=== PATIENT | male | born 1935 | race Caucasian/White ===

== ENCOUNTER 2018-04-23 17:01 | Emergency (ER) | payer OTHER, SELFPAY ==
[2018-04-23] VITALS (7 sets, daily range): BP systolic 102–119; BP diastolic 46–63; PULSE 67–75; RESP 14–20; TEMP 36.6; O2SAT 89–100
--- NOTE | 2018-04-23 17:55 | ED_ITS ---
HPI - SOB/Dyspnea <Farzana Alavrez PA-C - Last Filed: 04/23/18 23:03> General Chief Complaint: Shortness of Breath/Dyspnea Stated Complaint: SHARP PAIN RT SIDE Time Seen by Provider: 04/23/18 17:53 Source: patient and family Mode of arrival: ambulatory Limitations: no limitations History of Present Illness This 83-year-old gentleman with an extensive medical history presents with 2 day history of pain in his right side. He points to the 12 lateral rib as source of pain. He states that it is difficult to take a deep breath and he is breathing more shallow least secondary to the pain, however he does not feel acutely short of breath or notice wheezing. He states he does not feel pain up in his chest. He states that he may have had some nausea when this started last night, but none now. He denies any vomiting. He denies any fever or recent upper respiratory symptoms. He denies any urinary symptoms or bowel habit changes. He states that the pain is better at rest, increase with movement or deep breath. His notes that a week ago, he had an episode of nausea, vomiting, and bloating, but this seemed to resolve in a couple of days. notes that he did get a dose of morphine for this last night to help him rest. He has a history of nocturnal angina and uses oxygen at HS, at 2.5 L. His notes that his O2 sats were less than 90 at home and typically right around 94%. Patient denies any new pain or swelling in the extremities, feeling faint or dizzy or other complaints on systems review Related Data Home Medications Medication Instructions Recorded Confirmed aspirin 81 mg PO QDAY #0 10/08/12 04/23/18 famotidine 20 mg PO QPM #0 01/05/17 04/23/18 citalopram 20 mg PO QDAY #0 12/25/17 04/23/18 amlodipine 5 mg PO QPM 04/23/18 04/23/18 isosorbide mononitrate 30 mg PO DAILY 04/23/18 04/23/18 morphine concentrate 0.25 ml PO Q1H PRN 04/23/18 04/23/18 ranolazine [Ranexa] 500 mg PO BID 04/23/18 04/23/18 Previous Rx's Medication Instructions Recorded nitroglycerin [Nitrostat] 0.4 mg SUBLINGUAL PRN PRN #4 bot 10/28/17 isosorbide mononitrate ER 60 mg 60 mg PO QAM #90 tab 03/20/18 tablet,extended release 24 hr Allergies Allergy/AdvReac Type Severity Reaction Status Date / Time No Known Drug Allergies Allergy Unknown Unverified 02/28/18 12:54 [NO KNOWN DRUG ALLERGIES] abalone Allergy Mild pt reports Uncoded 02/28/18 12:54 vomiting/GI distress Review of Systems <Farzana Alvarez PA-C - Last Filed: 04/23/18 23:03> Review of Systems All systems reviewed & are unremarkable except as noted in HPI and below Exam <Farzana Alvarez PA-C - Last Filed: 04/23/18 23:03> Narrative Exam Narrative: GENERAL APPEARANCE: Patient sitting comfortably, in no distress. Appears frail HEENT: PERRL, EOMI, no scleral icterus NECK: Supple LUNGS: Clear to auscultation bilaterally. HEART: Rate and rhythm regular, IV/ low-pitched holosystolic murmur, normal S1 and S2, no S3 or S4. CHEST: exquisitely tender over the R. 12th rib most from the midclavicular to lateral clavicular line ABDOMEN: Soft, moderate right upper quadrant tenderness without guarding or rebound, , increased tenderness with approaching the costal margin, nondistended , bowel sounds present x 4 quadrants, no masses palpable, no hepatosplenomegaly. No CVAT EXTREMITIES: No edema, no cyanosis DERMATOLOGIC: No jaundice or exanthem NEUROLOGIC: Alert with normal speech and coordination Initial Vital Signs Initial Vital Signs: Vital Signs Temperature 97.8 F 04/23/18 17:14 Pulse Rate 71 04/23/18 17:14 Respiratory Rate 14 04/23/18 17:14 Blood Pressure 108/55 L 04/23/18 17:14 Pulse Oximetry 89 L 04/23/18 17:14 <Peter Esqueda DO - Last Filed: 04/24/18 02:16> Initial Vital Signs Initial Vital Signs: Vital Signs Temperature 97.8 F 04/23/18 17:14 Pulse Rate 71 04/23/18 17:14 Respiratory Rate 14 04/23/18 17:14 Blood Pressure 108/55 L 04/23/18 17:14 Pulse Oximetry 89 L 04/23/18 17:14 Course <Farzana Alvarez PA-C - Last Filed: 04/23/18 23:03> Hospital Course: I talked with the radiologist Dr. Puckett regarding patient's ultrasound findings. Discussed with patient that this could be gallbladder disease or gallbladder malignancy. Reviewed that radiologist advised that he would be best served by getting MRI with and without contrast to evaluate this further ( vs CT). Note was also made of a nonobstructing kidney stone, which we discussed Lb contribute to his pain although certainly atypical for that. Patient has not had any recurrent nausea today. He has not wanted to have any pain medication while here in the department. He wants to go home tonight and have this worked up as an outpatient, which seems reasonable. He does have morphine at home for pain control, has numerous chronic medical conditions and is focusing on quality of life. We did give him a prepack of Zofran to have on hand. He and his stated that they felt like he would know if he needs to be in the hospital and they would be comfortable coming back if he is acutely worse. Otherwise, they will call PCP 1st thing in the morning to arrange close outpatient follow-up and to schedule MRI. Orders Ordered: ED Orders 04/23/18 17:40 EKG-12 Lead Stat 04/23/18 18:14 US abdomen complete Stat XR chest 2V Stat XR ribs RT 2V Stat 04/23/18 18:24 Complete Blood Count AUTO DIFF Stat Comprehensive Metabolic Panel Stat Lipase Stat Discontinued Medications Ondansetron HCl (Zofran Odt Prepack) 1 bottle MISC SEEINSTR ONE Stop: 04/23/18 21:52 Last Admin: 04/23/18 22:13 Dose: 1 bottle Vital Signs - 8 hr 04/23/18 18:26 04/23/18 19:48 04/23/18 20:40 Pulse Rate 67 68 75 Respiratory Rate 16 16 20 Blood Pressure Blood Pressure [Left Arm] 114/50 L 102/47 L 119/63 Pulse Oximetry 100 90 L 91 04/23/18 21:04 04/23/18 22:30 Pulse Rate 72 Respiratory Rate 19 Blood Pressure 111/50 L Blood Pressure [Left Arm] Pulse Oximetry 94 99 <Peter Esqueda DO - Last Filed: 04/24/18 02:16> Orders Ordered: ED Orders 04/23/18 17:40 EKG-12 Lead Stat 04/23/18 18:14 US abdomen complete Stat XR chest 2V Stat XR ribs RT 2V Stat 04/23/18 18:24 Complete Blood Count AUTO DIFF Stat Comprehensive Metabolic Panel Stat Lipase Stat Discontinued Medications Ondansetron HCl (Zofran Odt Prepack) 1 bottle MISC SEEINSTR ONE Stop: 04/23/18 21:52 Last Admin: 04/23/18 22:13 Dose: 1 bottle Vital Signs - 8 hr 04/23/18 18:26 04/23/18 19:48 04/23/18 20:40 Pulse Rate 67 68 75 Respiratory Rate 16 16 20 Blood Pressure Blood Pressure [Left Arm] 114/50 L 102/47 L 119/63 Pulse Oximetry 100 90 L 91 04/23/18 21:04 04/23/18 22:30 Pulse Rate 72 Respiratory Rate 19 Blood Pressure 111/50 L Blood Pressure [Left Arm] Pulse Oximetry 94 99 MDM - SOB/Dyspnea <Farzana Alvarez PA-C - Last Filed: 04/23/18 23:03> Lab Data Attestation: I reviewed the patient's lab results. Result diagrams: 04/23/18 18:24 04/23/18 18:24 Lab Results 04/23/18 04/23/18 Range/Units 18:24 18:24 WBC 9.8 (4.5-11.0) X10^3/uL RBC 4.04 L (4.5-5.9) X10^6/uL Hgb 13.2 L (13.5-17.5) g/dL Hct 38.1 L (41-53) % MCV 94.2 (80-100) fL MCH 32.8 (26-34) PG MCHC 34.8 (30-36) % RDW 13.2 (11.6-14.8) % Plt Count 147 L (150-400) X10^3/uL Neut % (Auto) 81.6 H (50-75) % Lymph % (Auto) 5.3 L (25-40) % Ocean % (Auto) 11.1 (3-14) % Eos % (Auto) 1.4 L (2-4) % Baso % (Auto) 0.6 (0-2) % Neut # (Auto) 8000 H (7032-2338) /uL Sodium 134 L (137-145) mmol/L Potassium 4.7 (3.4-5.1) mmol/L Chloride 99 (98-107) mmol/L Carbon Dioxide 25 (22-32) mmol/L BUN 28 H (9-20) mg/dL Creatinine 1.20 (0.66-1.25) mg/dL Estimated GFR 57.8 L (>60) mL/min BUN/Creatinine Ratio 23.3 H (6-22) Glucose 113 H (80-110) mg/dL Calcium 8.9 (8.4-10.2) mg/dL Total Bilirubin 1.0 (0.2-1.3) mg/dL AST 19 (17-59) IU/L ALT 23 (21-72) IU/L Alkaline Phosphatase 129 H (38-126) U/L Total Protein 6.7 (6.3-8.2) g/dL Albumin 3.7 (3.5-5.0) g/dL Globulin 3.0 (1.7-4.1) g/dL Albumin/Globulin Ratio 1.2 (1.0-2.8) Lipase 31 (23-300) U/L Imaging Data Chest x-ray: Radiologist's impression: [address] [address] XRay Report Signed Patient: Sherman Hernandez MR#: [id number] : 1935 Acct:[id number] Age/Sex: 83 / M Date of Service: 04/23/18 Loc: ED Accession Number: [id number] Procedure: XR chest 2V Ordering Provider: Farzana Alvarez P.A-C PROCEDURE: XR CHEST 2V INDICATIONS: R. rib pain, dyspnea TECHNIQUE: 2 views of the chest were acquired. COMPARISON: [facility], CHEST 2 VIEW, 11/01/2017, 12:13. [facility], CHEST 2 VIEW, 09/29/2017, 13:24. FINDINGS: Surgical changes and devices: Sternotomy with mediastinal postoperative changes. Lungs and pleura: Stable pleural effusions with associated atelectasis/ infiltrate left greater than right. Poorly seen left lower lobe known mass. Mediastinum: Mediastinal contours are normal. Heart size is normal. Bones and chest wall: No suspicious bony abnormalities. Soft tissues appear unremarkable. IMPRESSION: Stable pleural effusions with atelectasis/infiltrate left greater than right. Known left lower lobe mass lesion is poorly seen. Dictated by: Sherif Puckett M.D. on 04/23/2018 at 19:06 Approved by: Sherif Puckett M.D. on 04/23/2018 at 19:07 View Report History [address] [address] XRay Report Signed Patient: Sherman Hernandez MR#: [id number] : 1935 Acct:[id number] Age/Sex: 83 / M Date of Service: 04/23/18 Loc: ED Accession Number: [id number] Procedure: XR ribs RT 2V Ordering Provider: Farzana Alvarez P.A-C PROCEDURE: XR RIBS RT 2V INDICATIONS: Right rib pain TECHNIQUE: 2 views of the right ribs were acquired. COMPARISON: None. FINDINGS: Surgical changes and devices: None. Bones and chest wall: No fractures or dislocations. No suspicious bony lesions. Overlying soft tissues appear unremarkable. Cholelithiasis. IVC filter. Lungs and pleura: The visualized lung appears clear. No pleural effusions or pneumothorax are visible. IMPRESSION: No acute fractures or dislocations. Cholelithiasis. Dictated by: Sherif Puckett M.D. on 04/23/2018 at 19:05 Approved by: Sherif Puckett M.D. on 04/23/2018 at 19:05 US - abdomen: Radiologist's impression: View Report History [address] [address] Ultrasound Report Signed Patient: Sherman Hernandez MR#: [id number] : 1935 Acct:[id number] Age/Sex: 83 / M Date of Service: 04/23/18 Loc: ED Accession Number: [id number] Procedure: US abdomen complete Ordering Provider: Farzana Alvarez-C PROCEDURE: US ABDOMEN COMPLETE INDICATIONS: R. uq pain TECHNIQUE: Real-time scanning was performed of the abdominal and retroperitoneal organs, with image documentation. COMPARISON: None. FINDINGS: Liver: Liver is normal in size and homogeneous in echotexture. Gallbladder: Asymmetric heterogeneous gallbladder wall thickening with internal vascularity measuring up to 18 mm. Likely cholelithiasis. No pericholecystic fluid. Biliary ducts: Intrahepatic bile ducts are non-dilated. Extrahepatic bile duct caliber measures 6 mm. Normal is 6-7 mm or less in diameter, or 10 mm or less post-cholecystectomy. Pancreas: The pancreas is obscured Spleen: Spleen is normal in size and homogeneous in echotexture. Kidneys: Kidneys are normal in size and echotexture. Right kidney measures 11.0 cm long; left kidney measures 9.6 cm long. No hydronephrosis. There is an 8mm nonobstructing right renal calculus. No solid masses. Aorta: Obscured. Iliacs: Obscured. IVC: Obscured. Miscellaneous: No free abdominal fluid. Right-sided pleural effusion. IMPRESSION: 1. Irregular gallbladder wall thickening with likely cholelithiasis. Findings may represent acute or chronic cholecystitis. Gallbladder cancer is also possible. Consider an MRI with and without contrast for differentiation. 2. Nonobstructing right renal calculus. 3. Findings discussed via telephone ([id number]) at 21:40 on 04/23/2018 with TONIE Arias. ECG Data Attestation: I personally reviewed and interpreted this ECG as follows: (NSR with rate 66, LAD, Q-waves in V1-V4, no acute changes) Prior ECG tracings: available for review <Peter Esqueda DO - Last Filed: 04/24/18 02:16> Lab Data Lab Results 04/23/18 04/23/18 Range/Units 18:24 18:24 WBC 9.8 (4.5-11.0) X10^3/uL RBC 4.04 L (4.5-5.9) X10^6/uL Hgb 13.2 L (13.5-17.5) g/dL Hct 38.1 L (41-53) % MCV 94.2 (80-100) fL MCH 32.8 (26-34) PG MCHC 34.8 (30-36) % RDW 13.2 (11.6-14.8) % Plt Count 147 L (150-400) X10^3/uL Neut % (Auto) 81.6 H (50-75) % Lymph % (Auto) 5.3 L (25-40) % Ocean % (Auto) 11.1 (3-14) % Eos % (Auto) 1.4 L (2-4) % Baso % (Auto) 0.6 (0-2) % Neut # (Auto) 8000 H (8160-0221) /uL Sodium 134 L (137-145) mmol/L Potassium 4.7 (3.4-5.1) mmol/L Chloride 99 (98-107) mmol/L Carbon Dioxide 25 (22-32) mmol/L BUN 28 H (9-20) mg/dL Creatinine 1.20 (0.66-1.25) mg/dL Estimated GFR 57.8 L (>60) mL/min BUN/Creatinine Ratio 23.3 H (6-22) Glucose 113 H (80-110) mg/dL Calcium 8.9 (8.4-10.2) mg/dL Total Bilirubin 1.0 (0.2-1.3) mg/dL AST 19 (17-59) IU/L ALT 23 (21-72) IU/L Alkaline Phosphatase 129 H (38-126) U/L Total Protein 6.7 (6.3-8.2) g/dL Albumin 3.7 (3.5-5.0) g/dL Globulin 3.0 (1.7-4.1) g/dL Albumin/Globulin Ratio 1.2 (1.0-2.8) Lipase 31 (23-300) U/L Discharge Plan Departure Patient Disposition: Home, Self-Care Clinical Impression: Rib pain on right side, Abdominal right upper quadrant tenderness Discharge Date/Time: 04/23/18 22:33 Interventions: ED Discharge Assessment Last Done: 04/23/18 22:30 Instructions: DI for Kidney Stones, DI for Abdominal Pain-Adult Activity Restrictions/Additional Instructions: As we talked about, the source of your pain is not clear tonight. I talked with the radiologist who thinks that you need further testing on your gallbladder, and his advice was to have an MRI/MRCP, which typically is done as an outpatient. He also noted that you have a kidney stone tonight, which is not blocking your urinary system but these can be painful as well. Since you prefer to go home tonight, it is very reasonable to have this test done as an outpatient, however you should return immediately if you have any acutely worsening symptoms, or new symptoms such as fever or vomiting. You can use your morphine that you have at home for pain, and you have a few nausea pills that we gave you in case your nausea worsens again. Please call Dr. Rosado' office first thing in the morning and let them know you are having right sided pain that needs follow up tomorrow and further testing Prescriptions: No Action aspirin 81 mg Tablet,Delayed Release (Dr/Ec) 81 mg PO QDAY Qty: 0 RF: 0 famotidine 20 MG tablet 20 mg PO QPM Qty: 0 RF: 0 nitroglycerin [Nitrostat] 0.4 MG tablet, sublingual 0.4 mg Sublingual PRN PRNQty: 4 RF: 11 citalopram 20 MG tablet 20 mg PO QDAY Qty: 0 RF: 0 isosorbide mononitrate 60 mg tablet extended release 24 hr 60 mg PO QAM Qty: 90 RF: 0 morphine concentrate 100 mg/5 mL (20 mg/mL) solution 0.25 ml PO Q1H PRN (Reason: Pain, Severe) RF: 0 isosorbide mononitrate 30 mg tablet extended release 24 hr 30 mg PO DAILY RF: 0 amlodipine 5 mg tablet 5 mg PO QPM RF: 0 ranolazine [Ranexa] 500 mg Tablet Extended Release 12 Hr 500 mg PO BID RF: 0 Referrals: Navneet Rosado MD [Physician] - <Peter Esqueda DO - Last Filed: 04/24/18 02:16> Cosign ED Attending [place] Attestation: I was immediately available in the department for consultation. Documentation has been reviewed. I agree with assessment and plan.
--- NOTE | 2018-04-23 18:14 | DI.RAD.S_ITS ---
PROCEDURE: XR RIBS RT 2V INDICATIONS: Right rib pain TECHNIQUE: 2 views of the right ribs were acquired. COMPARISON: None. FINDINGS: Surgical changes and devices: None. Bones and chest wall: No fractures or dislocations. No suspicious bony lesions. Overlying soft tissues appear unremarkable. Cholelithiasis. IVC filter. Lungs and pleura: The visualized lung appears clear. No pleural effusions or pneumothorax are visible. IMPRESSION: No acute fractures or dislocations. Cholelithiasis. Dictated by: Sherif Puckett M.D. on 04/23/2018 at 19:05 Approved by: Sherif Puckett M.D. on 04/23/2018 at 19:05
--- NOTE | 2018-04-23 18:14 | DI.US.S_ITS ---
PROCEDURE: US ABDOMEN COMPLETE INDICATIONS: R. uq pain TECHNIQUE: Real-time scanning was performed of the abdominal and retroperitoneal organs, with image documentation. COMPARISON: None. FINDINGS: Liver: Liver is normal in size and homogeneous in echotexture. Gallbladder: Asymmetric heterogeneous gallbladder wall thickening with internal vascularity measuring up to 18 mm. Likely cholelithiasis. No pericholecystic fluid. Biliary ducts: Intrahepatic bile ducts are non-dilated. Extrahepatic bile duct caliber measures 6 mm. Normal is 6-7 mm or less in diameter, or 10 mm or less post-cholecystectomy. Pancreas: The pancreas is obscured Spleen: Spleen is normal in size and homogeneous in echotexture. Kidneys: Kidneys are normal in size and echotexture. Right kidney measures 11.0 cm long; left kidney measures 9.6 cm long. No hydronephrosis. There is an 8mm nonobstructing right renal calculus. No solid masses. Aorta: Obscured. Iliacs: Obscured. IVC: Obscured. Miscellaneous: No free abdominal fluid. Right-sided pleural effusion. IMPRESSION: 1. Irregular gallbladder wall thickening with likely cholelithiasis. Findings may represent acute or chronic cholecystitis. Gallbladder cancer is also possible. Consider an MRI with and without contrast for differentiation. 2. Nonobstructing right renal calculus. 3. Findings discussed via telephone ([id number]) at 21:40 on 04/23/2018 with TONIE Arias. Dictated by: Sherif Puckett M.D. on 04/23/2018 at 21:37 Approved by: Sherif Puckett M.D. on 04/23/2018 at 21:44
--- NOTE | 2018-04-23 18:14 | DI.RAD.S_ITS ---
PROCEDURE: XR CHEST 2V INDICATIONS: R. rib pain, dyspnea TECHNIQUE: 2 views of the chest were acquired. COMPARISON: [facility], CHEST 2 VIEW, 11/01/2017, 12:13. [facility], , CHEST 2 VIEW, 09/29/2017, 13:24. FINDINGS: Surgical changes and devices: Sternotomy with mediastinal postoperative changes. Lungs and pleura: Stable pleural effusions with associated atelectasis/infiltrate left greater than right. Poorly seen left lower lobe known mass. Mediastinum: Mediastinal contours are normal. Heart size is normal. Bones and chest wall: No suspicious bony abnormalities. Soft tissues appear unremarkable. IMPRESSION: Stable pleural effusions with atelectasis/infiltrate left greater than right. Known left lower lobe mass lesion is poorly seen. Dictated by: Sherif Puckett M.D. on 04/23/2018 at 19:06 Approved by: Sherif Puckett M.D. on 04/23/2018 at 19:07
[2018-04-23 18:37] LABS: Add Manual Diff / Slide Review NO; Basophils Percent Auto 0.6 % (0-2); Eosinophils Percent Auto 1.4 % (2-4); Hematocrit 38.1 % (41-53); Hemoglobin 13.2 g/dL (13.5-17.5); Lymphocytes Percent Auto 5.3 % (25-40); Mean Corpuscular HGB Conc 34.8 % (30-36); Mean Corpuscular Hemoglobin 32.8 PG (26-34); Mean Corpuscular Volume 94.2 fL (80-100); Monocytes Percent Auto 11.1 % (3-14); Neutrophils Absolute Auto 8000 /uL (3000-5900); Neutrophils Percent Auto 81.6 % (50-75); Platelet Count 147 X10^3/uL (150-400); Red Blood Cell Count 4.04 X10^6/uL (4.5-5.9); Red Cell Distribution Width 13.2 % (11.6-14.8); White Blood Cell Count 9.8 X10^3/uL (4.5-11.0)
[2018-04-23 18:49] LABS: Alanine Aminotransferase 23 IU/L (21-72); Albumin 3.7 g/dL (3.5-5.0); Albumin Globulin Ratio 1.2 (1.0-2.8); Alkaline Phosphatase 129 U/L (38-126); Aspartate Aminotransferase 19 IU/L (17-59); BUN Creatinine Ratio 23.3 (6-22); Blood Urea Nitrogen 28 mg/dL (9-20); Calcium 8.9 mg/dL (8.4-10.2); Carbon Dioxide 25 mmol/L (22-32); Chloride 99 mmol/L (98-107); Estimated Glomerular Filt Rate 57.8 mL/min (>60); Glucose 113 mg/dL (80-110); HEMOLYSIS < 15 (0-50); Lipase 31 U/L (23-300); Potassium 4.7 mmol/L (3.4-5.1); Sodium 134 mmol/L (137-145); Total Protein 6.7 g/dL (6.3-8.2)
[2018-04-23] MEDS: ONDANSETRON 4 MG ODT PREPACK 1 BOTTLE MISC (22:13)
== END 2018-04-23 22:33 | disposition home or self-care (01) ==
PROVIDERS: Emergency Provider Internal Medicine; Family Provider Family Medicine; PCP Family Medicine
DX: R07.81 Pleurodynia (principal); R10.11 Right upper quadrant pain
CPT/HCPCS: 36591; 71046; 71100; 76700; 80053; 83690; 85025; 93005; 99283; 99285

== ENCOUNTER → 2018-05-01 08:11 | Outpatient (CLI) | payer OTHER, SELFPAY ==
--- NOTE | 2018-05-01 08:14 | DI.MRI.S_ITS ---
PROCEDURE: MR ABDOMEN WO/W CON INDICATIONS: abd pain TECHNIQUE: Coronal HASTE, axial 2D FLASH in- and [id number]; axial breath-hold T2 FSE. Dynamic axial VIBE during the administration of contrast; post-contrast coronal VIBE or 2D FLASH with fat saturation from the hepatic dome to the iliac crests. Optional diffusion weighted imaging and ADC may be performed. COMPARISON: [facility], CR, XR CHEST 2V, 04/23/2018, 17:58. [facility], CR, XR RIBS RT 2V, 04/23/2018, 17:58. [facility], US, US ABDOMEN COMPLETE, 04/23/2018, 20:52. FINDINGS: Image quality: Excellent. Lung bases: There are bilateral small to moderate basal pleural effusions. Heart size is normal. Solid organs: Liver is normal in size and enhancement. Gallbladder demonstrates a concentric mild mural thickening but no mass. Note is made of sludge and stones within the gallbladder lumen Biliary system is non dilated. Pancreas is normal in morphology. Spleen is normal in size and enhancement. No adrenal nodules. Both kidneys demonstrate normal size and enhancement, without hydronephrosis. Note is made of a nonenhancing 1.5 cm maximal dimension left mid kidney posterolateral renal cortical cyst. Nodes and vessels: No retroperitoneal or mesenteric adenopathy by size criteria. Aorta and inferior vena cava are normal in size. Bowel and peritoneum: Unenhanced bowel loops are normal in caliber. No free fluid. Bones and soft tissues: No ventral hernias. Bone marrow is normal in overall signal. IMPRESSION: Mild concentric gallbladder wall thickening, sludge and stones are seen within the gallbladder lumen but there is no sign of gallbladder mass. Incidental note is made of bilateral small to moderate pleural effusions (likely cardiogenic in origin based on prior chest plain film imaging). Dictated by: Deni Vinson M.D. on 05/01/2018 at 10:24 Approved by: Dein Vinson M.D. on 05/01/2018 at 10:31
== END ==
PROVIDERS: PCP Internal Medicine; Visit Provider Internal Medicine
DX: R10.9 Unspecified abdominal pain (principal); K80.20 Calculus of gallbladder without cholecystitis without obstruction; J90 Pleural effusion, not elsewhere classified
CPT/HCPCS: 74183; A9579

== ENCOUNTER → 2018-06-21 16:26 | Outpatient (CLI) | payer OTHER, SELFPAY ==
--- NOTE | 2018-06-21 16:29 | DI.RAD.S_ITS ---
PROCEDURE: XR HIP W PEL IF DONE RT 2V INDICATIONS: hip pain TECHNIQUE: AP pelvis with lateral view(s) of the right hip(s). COMPARISON: [facility], , L-SPINE 2-3 VIEWS, 07/02/2010, 10:49. FINDINGS: Bones: No fractures or dislocations. Pelvic ring appears intact. No suspicious bony lesions. Moderate symmetric hip joint narrowing and periarticular osteophyte formation. Degenerative disc and facet disease as well as inferior lumbar spine. SI joints are nearly fused. Bones are diffusely osteopenic. Soft tissues: The visualized bowel gas pattern is normal. No suspicious soft tissue calcifications. Vascular calcifications indicate atherosclerosis. IMPRESSION: Moderate symmetric hip joint degeneration. Near fusion of the SI joints. Dictated by: Derek MCMAHAN Interpreted: Criselda You MD on 06/21/2018 at 16:47 Approved by: Criselda You M.D. on 06/21/2018 at 17:48
== END ==
PROVIDERS: PCP Internal Medicine; Visit Provider Internal Medicine
DX: M16.11 Unilateral primary osteoarthritis, right hip (principal); M25.551 Pain in right hip
CPT/HCPCS: 73502

== ENCOUNTER → 2018-07-04 10:14 | Outpatient (CLI) | payer OTHER, SELFPAY ==
[2018-07-04 11:57] LABS: Alanine Aminotransferase 27 IU/L (21-72); Albumin 3.8 g/dL (3.5-5.0); Albumin Globulin Ratio 1.5 (1.0-2.8); Alkaline Phosphatase 204 U/L (38-126); Aspartate Aminotransferase 26 IU/L (17-59); BUN Creatinine Ratio 24.2 (6-22); Bilirubin Total 0.7 mg/dL (0.2-1.3); Blood Urea Nitrogen 29 mg/dL (9-20); Calcium 9.7 mg/dL (8.4-10.2); Carbon Dioxide 30 mmol/L (22-32); Chloride 101 mmol/L (98-107); Cholesterol 203 mg/dL (140-199); Estimated Glomerular Filt Rate 57.8 mL/min (>60); Globulin 2.6 g/dL (1.7-4.1); Glucose 82 mg/dL (80-110); HDL Cholesterol 42 mg/dL (40-60); HEMOLYSIS 21 (0-50); LDL Cholesterol Calculated 137 mg/dL (<100); Potassium 4.8 mmol/L (3.4-5.1); Sodium 138 mmol/L (137-145); Total Protein 6.4 g/dL (6.3-8.2); Triglycerides 122 mg/dL (35-150)
== END ==
PROVIDERS: PCP Internal Medicine; Visit Provider Specialist
DX: R07.9 Chest pain, unspecified (principal)
CPT/HCPCS: 36415; 80053; 80061

== ENCOUNTER 2018-10-27 11:08 | Inpatient (IN) | payer OTHER, SELFPAY ==
[2018-10-27] VITALS (12 sets, daily range): BP systolic 103–114; BP diastolic 55–74; PULSE 76–91; RESP 13–30; TEMP 36.3–37.2; O2SAT 78–97; BMI 22.7
--- NOTE | 2018-10-27 11:16 | DI.RAD.S_ITS ---
PROCEDURE: XR CHEST 1V INDICATIONS: SOB, cough TECHNIQUE: One view of the chest was acquired. COMPARISON: [facility], CR, XR CHEST 2V, 04/23/2018, 17:58. FINDINGS: Surgical changes and devices: Median sternotomy wires and surgical clips are seen. Lungs and pleura: Left greater than right bilateral pleural effusion is seen with fluid extending into minor fissure on the right side. Ill-defined airspace opacities are seen scattered in bilateral lung martinez. No gross pneumothorax. Mediastinum: Mediastinal contours appear normal. Heart size is enlarged. Bones and chest wall: No suspicious bony lesions. Overlying soft tissues appear unremarkable. IMPRESSION: Left greater than right bilateral pleural effusions and pulmonary edema with ill-defined patchy airspace opacities scattered in bilateral lung martinez. No gross pneumothorax. Pulmonary vascular congestion. Dictated by: Vishnu Mcintyre M.D. on 10/27/2018 at 11:39 Approved by: Vishnu Mcintyre M.D. on 10/27/2018 at 11:40
[2018-10-27 11:27] LABS: Add Manual Diff / Slide Review NO; Basophils Percent Auto 0.3 % (0-2); Eosinophils Percent Auto 0.4 % (2-4); Hematocrit 40.1 % (41-53); Hemoglobin 13.7 g/dL (13.5-17.5); Lymphocytes Percent Auto 6.2 % (25-40); Mean Corpuscular HGB Conc 34.2 % (30-36); Mean Corpuscular Hemoglobin 33.1 PG (26-34); Mean Corpuscular Volume 96.9 fL (80-100); Monocytes Percent Auto 8.5 % (3-14); Neutrophils Absolute Auto 8700 /uL (3000-5900); Neutrophils Percent Auto 84.6 % (50-75); Platelet Count 159 X10^3/uL (150-400); Red Blood Cell Count 4.14 X10^6/uL (4.5-5.9); Red Cell Distribution Width 13.7 % (11.6-14.8); White Blood Cell Count 10.3 X10^3/uL (4.5-11.0)
[2018-10-27 11:35] LABS: Alanine Aminotransferase 23 IU/L (21-72); Albumin 4.4 g/dL (3.5-5.0); Albumin Globulin Ratio 1.6 (1.0-2.8); Alkaline Phosphatase 158 U/L (38-126); Aspartate Aminotransferase 23 IU/L (17-59); BUN Creatinine Ratio 23.1 (6-22); Bilirubin Total 1.2 mg/dL (0.2-1.3); Blood Urea Nitrogen 30 mg/dL (9-20); Calcium 9.4 mg/dL (8.4-10.2); Carbon Dioxide 24 mmol/L (22-32); Chloride 102 mmol/L (98-107); Creatine Kinase 34 U/L (55-170); Estimated Glomerular Filt Rate 52.7 mL/min (>60); Globulin 2.8 g/dL (1.7-4.1); Glucose 118 mg/dL (80-110); HEMOLYSIS < 15 (0-50); Lipase 47 U/L (23-300); Potassium 4.8 mmol/L (3.4-5.1); Sodium 141 mmol/L (137-145); Total Protein 7.2 g/dL (6.3-8.2)
--- NOTE | 2018-10-27 11:37 | PC.NURSE ---
arrived to ER with oxygen sats 78 percent on room air. increased oxygen to 6l nc for pulse ox 97percent. titrating down as needed.
[2018-10-27 12:10] LABS: Troponin I 0.124 ng/mL (0.01-0.034)
--- NOTE | 2018-10-27 13:12 | ED_ITS ---
HPI - Chest Pain General Chief Complaint: Chest Pain Stated Complaint: HEART PAIN Time Seen by Provider: 10/27/18 11:15 Source: patient and family Mode of arrival: ambulatory Limitations: no limitations History of Present Illness HPI narrative: 83-year-old nonsmoker with complex medical history presents to the emergency department with his and a chief complaint of multiple episodes of chest pain and shortness of breath over the past few days. Some of his chest pain has developed while at rest, even while he sleeps and certainly worsens with exertion. Additionally, his shortness of breath is associated with exertion. He has known coronary artery disease and cardiology has stated he has not likely to benefit from any stenting, he is not a candidate for bypass either. The patient was on hospice up until about 1 year ago and continues to be DNR but is open to treatment. He denies fever or chills nor cough. His PCP is Dr. Rosado and cardiology is Dr. Perez of [facility]. He has been taking all his medications as directed. MD complaint: chest pain Onset (ago): hour(s) Duration: intermittent and improved Onset: during rest and during exertion Severity: moderate Quality: tightness and aching Pain radiation: none Relieving factors: rest Exacerbating factors: nothing Associated symptoms: nausea Treatments prior to arrival chest pain: nitroglycerin Related Data Home Medications Medication Instructions Recorded Confirmed aspirin 81 mg PO QDAY #0 10/08/12 10/27/18 famotidine 20 mg PO QPM #0 01/05/17 10/27/18 amlodipine 5 mg PO QPM 04/23/18 10/27/18 morphine concentrate 0.25 ml PO Q1H PRN 04/23/18 10/27/18 ranolazine [Ranexa] 500 mg PO BID 04/23/18 10/27/18 nitroglycerin [Nitrostat] 0.4 mg SUBLINGUAL PRN PRN 10/27/18 10/27/18 sennosides [senna] 1 tab PO DAILY PRN 10/27/18 10/27/18 Previous Rx's Medication Instructions Recorded isosorbide mononitrate ER 60 mg 60 mg PO QAM #90 tab 03/20/18 tablet,extended release 24 hr citalopram 20 mg tablet 20 mg PO QDAY #90 tab 07/31/18 Allergies Allergy/AdvReac Type Severity Reaction Status Date / Time No Known Drug Allergies Allergy Unknown Verified 10/27/18 11:31 [NO KNOWN DRUG ALLERGIES] abalone Allergy Mild pt reports Uncoded 10/27/18 11:31 vomiting/GI distress Review of Systems Review of Systems All systems reviewed & are unremarkable except as noted in HPI and below Constitutional Denies chills, Denies fever(s), Denies lethargy and Reports weakness Eyes Denies change in vision, Denies eye discharge, Denies irritation and Denies loss of vision ENT Ears, Nose, Mouth, and Throat: Denies change in voice, Denies neck pain and Denies sore throat Cardiovascular Reports chest pain, Denies irregular heart rhythm, Denies lightheadedness, Denies palpitations, Reports dyspnea, Reports dyspnea on exertion and Reports orthopnea Respiratory Denies cough, Reports dyspnea, Reports dyspnea on exertion and Denies wheezing Gastrointestinal Gastrointestinal: Denies abdominal pain, Denies change in bowel habits, Denies diarrhea, Denies nausea and Denies vomiting Genitourinary Denies hematuria, Denies flank pain, Denies urinary incontinence and Denies urinary urgency Musculoskeletal Denies neck pain Integumentary/Breasts Denies pruritus, Denies erythema, Denies rash and Denies wounds Neurologic Denies confusion, Denies loss of vision and Reports weakness Psychiatric Denies anxiety, Denies confusion, Denies depression, Denies homicidal ideation and Denies suicidal ideation Endocrine Denies palpitations Hematologic/Lymphatic Denies easy bruising Allergic/Immunologic Denies wheezing PFSH Social History marital status: number of children: 3 household members: spouse and other (Family friend.) lives independently: Yes caregiver/support person: No housing: house pets and animals: Yes education level: other (College + some graduate schooling.) occupational status: other (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 Minimal exertion results and desaturations into the mid 80s Initial Vital Signs Initial Vital Signs: Vital Signs Temperature 97.5 F L 10/27/18 11:09 Pulse Rate 83 10/27/18 11:09 Respiratory Rate 20 10/27/18 11:09 Blood Pressure 106/57 L 10/27/18 11:09 Pulse Oximetry 78 L 10/27/18 11:09 Const General: cooperative, well developed and acute distress Nutritional Appearance: well nourished Orientation: alert, awake, oriented x3 and not confused [facility] Head: normocephalic and atraumatic Ears: external ears normal and TM's normal bilaterally Nose: external nose normal and No nasal discharge Face and sinus: no sinus tenderness and No dry mucous membranes Mouth: moist mucous membranes Teeth and gingiva: dentition normal Throat: tonsils normal and uvula midline Eyes General: appearance normal, both eyes and all related structures Eyelids: eyelids normal Pupils: PERRL EOM: EOM intact bilaterally Neck Neck: normal visual inspection, trachea midline, No lymphadenopathy, No midline deformity and No JVD Lymphatic: No lymphedema Chest Chest: normal inspection of the chest Resp Effort & Inspection: normal respiratory effort, able to speak in complete sentences, no respiratory distress and no use of accessory muscles Auscultation: clear to auscultation bilaterally, diminished lung sounds, rales, no rhonchi and no wheezes Cardio Rate: regular rate Rhythm: regular rhythm Heart Sounds: no click, no gallops, murmur and no rubs Pulses: normal peripheral pulses GI Inspection: non-distended Palpation: soft, no hepatosplenomegaly, No guarding, No pulsatile mass and No tender Auscultation: normal bowel sounds Back/Spine/Pelvis Back: No CVA tenderness Cervical Spine: cervical ROM normal and No pain with cervical ROM Thoracic/Lumbar Spine: thoracic and lumbar spine normal to inspection Neuro General: alert, oriented x3, gait normal and no focal motor deficits Speech: speech normal Psych Appearance: well kempt Mental Status: mental status grossly normal Attitude: cooperative Thought Content: normal and suicidality Judgment: judgment good Course Orders Ordered: ED Orders 10/27/18 11:16 XR chest 1V Stat 10/27/18 11:17 B Type Natriuretic Peptide Stat Complete Blood Count AUTO DIFF Stat Comprehensive Metabolic Panel Stat Lipase Stat Troponin & CK Cardiac Panel Stat Discontinued Medications Furosemide (Lasix) 40 mg IV NOW ONE Stop: 10/27/18 12:53 Last Admin: 12/08/18 13:22 Dose: 40 mg Reevaluation(s) Reevaluation #1: Patient remains largely absent of any chest pain in the department Consultations Consultation #1: Call to Cardiology at [facility] to discuss this patient and the complexity of his history. His last heart catheterization was in December of 2016 and noted some calcifications around the stent of the circumflex artery which are not suitable for further treatment. She states that based on his cath report he has not likely to be a candidate for further stenting. Furthermore he is not a candidate for any additional bypass. She is able to review his most recent echo which was also about a year ago which noted moderate aortic stenosis. She does state that transfer is appropriate for this patient but if there are no available beds she is quite comfortable with the patient staying here to get a new echo and receive gentle diuresis. Consultation #2: Called to Dr. Rosado to help care for this patient, he is happy to accept this patient Vital Signs - 8 hr 10/27/18 11:09 10/27/18 11:30 10/27/18 11:32 Temperature 97.5 F L Pulse Rate 83 76 80 Respiratory Rate 20 13 20 Blood Pressure 106/57 L Blood Pressure [Left Arm] 107/62 109/57 L Pulse Oximetry 78 L 93 97 10/27/18 12:00 10/27/18 12:30 10/27/18 13:00 Temperature Pulse Rate 77 77 77 Respiratory Rate 13 16 14 Blood Pressure Blood Pressure [Left Arm] 109/58 L 104/59 L 103/55 L Pulse Oximetry 94 93 92 10/27/18 13:30 10/27/18 14:00 Temperature Pulse Rate 84 84 Respiratory Rate 20 20 Blood Pressure Blood Pressure [Left Arm] 109/59 L 109/59 L Pulse Oximetry 91 91 MDM - Chest Pain Lab Data Result diagrams: 10/27/18 11:17 10/27/18 11:17 Lab Results 10/27/18 10/27/18 Range/Units 11:17 11:17 WBC 10.3 (4.5-11.0) X10^3/uL RBC 4.14 L (4.5-5.9) X10^6/uL Hgb 13.7 (13.5-17.5) g/dL Hct 40.1 L (41-53) % MCV 96.9 (80-100) fL MCH 33.1 (26-34) PG MCHC 34.2 (30-36) % RDW 13.7 (11.6-14.8) % Plt Count 159 (150-400) X10^3/uL Neut % (Auto) 84.6 H (50-75) % Lymph % (Auto) 6.2 L (25-40) % [place] % (Auto) 8.5 (3-14) % Eos % (Auto) 0.4 L (2-4) % Baso % (Auto) 0.3 (0-2) % Neut # (Auto) 8700 H (8781-7927) /uL Sodium 141 (137-145) mmol/L Potassium 4.8 (3.4-5.1) mmol/L Chloride 102 (98-107) mmol/L Carbon Dioxide 24 (22-32) mmol/L BUN 30 H (9-20) mg/dL Creatinine 1.30 H (0.66-1.25) mg/dL Estimated GFR 52.7 L (>60) mL/min BUN/Creatinine Ratio 23.1 H (6-22) Glucose 118 H (80-110) mg/dL Calcium 9.4 (8.4-10.2) mg/dL Total Bilirubin 1.2 (0.2-1.3) mg/dL AST 23 (17-59) IU/L ALT 23 (21-72) IU/L Alkaline Phosphatase 158 H (38-126) U/L Total Creatine Kinase 34 L (55-170) U/L CK-MB (CK-2) TNP CK-MB (CK-2) Rel Index TNP Troponin I 0.124 H* (0.01-0.034) ng/mL B-Natriuretic Peptide 550.0 H (<100) Total Protein 7.2 (6.3-8.2) g/dL Albumin 4.4 (3.5-5.0) g/dL Globulin 2.8 (1.7-4.1) g/dL Albumin/Globulin Ratio 1.6 (1.0-2.8) Lipase 47 (23-300) U/L MDM Narrative Medical decision making narrative: Patient with very complex medical history presents with increasing shortness of breath and chest pain. Given his history , physical and labs it is unclear if this is truly ischemic, due to exacerbation of heart failure or perhaps worsening of aortic stenosis. Admission to the hospital for hypoxic respiratory failure and stabilization of his condition as well as further diagnostic procedures are indicated. Discharge Plan Departure Patient Disposition: Admitted As Inpatient Clinical Impression: Chest pain, Acute CHF Admit Date/Time: 10/27/18 13:46 Admit Provider: Navneet Rosado
[2018-10-27] MEDS: FUROSEMIDE 40 MG/4 ML VIAL IV (13:22)
--- NOTE | 2018-10-27 15:43 | DI.ECHO.S_ITS ---
[facility] +---------+ : : [address] [place] : : : : [id number] : : : : Phone: [phone] Echocardiogram Report + + :Name: TYE BETHEA Study Date: 10/28/2018 Height: 70 in : :[facility] Exam Location: [facility] Weight: 158 lb: : Gender: Male BSA: 1.9 m2 : :: 1935 Age: 83 yrs BP: 92/56 mmHg: :Reason For Study: CHF : : Performed By: Gustavo Son : :Referring: CAROLINA SOTO R : + + Interpretation Summary normal sinus rhythm. Normal LV size; mild concentric LVH (pt has known amyloidosis). There is moderate global hypokinesis. EF is 35-40%. Stage III diastolic dysfunction. Severe LA enlargement. Aortic sclerosis with moderate stenosis; mean gradient is 18 mm Hg and peak velocity is 2.8 m/sec. There is moderate eccentric posterolaterally directed aortic regurgitation. Mitral valve leaflets are normal; there is moderate central regurgitation. Tricuspid leaflet are normal with moderate central regurgitation. Estimated PA systolic pressure is 45 mm Hg assuming RA pressure of 15 mm hg. Compared to prior study 07/08/2017 LV is less dynamic; hypokinesis is global. EPSS is up from 0.8 cm to 1.4 cm consistent with worsening cardiomyopathy. Procedure: A two-dimensional transthoracic echocardiogram with color flow and Doppler was performed. The study quality was technically adequate. Comparison is made with the echocardiogram of 07/08/17. The patient was in normal sinus rhythm during the exam. Left Ventricle: The left ventricle is normal in size. Left ventricular wall thickness is mildly increased. The ejection fraction is estimated to be 35- 40%. Right Ventricle: The right ventricle is at the upper limits of normal in size. Right ventricular systolic function is mildly reduced. Atria: The left atrium is severely dilated. Right atrial size is normal. The interatrial septum is intact with no evidence for an atrial septal defect. Mitral Valve: The mitral valve is normal in structure and function. There is moderate mitral regurgitation. Aortic Valve: The aortic valve is trileaflet. The aortic valve is moderately calcified. Leaflet mobility is moderately reduced. The peak aortic velocity is 2.82 m/sec. The aortic valve mean gradient is 18 mmHg. The calculated aortic valve area is 0.70 cm2. There is moderate aortic stenosis. There is mild aortic regurgitation. There is an eccentric jet of aortic insufficiency directed against the anterior mitral leaflet. Tricuspid Valve: The tricuspid valve is normal in structure and function. There is trace tricuspid regurgitation. Pulmonic Valve: The pulmonic valve is normal in structure and function. There is trace pulmonic regurgitation. Great Vessels: The aortic root is normal size. The dimensions of the ascending aorta are normal. The pulmonary artery is normal size. The IVC is of normal diameter and collapses less than 50% with a sniff. This suggests a right atrial pressure of 8 mm Hg. Pericardium/ Pleura There is no pericardial effusion. There is a large right-sided pleural effusion. There is a small left-sided pleural effusion. MMode/2D Measurements & Calculations LVIDd: 5.0 cm LVOT diam: 2.0 cm LVIDs: 3.9 cm Ao root diam: 3.0 cm FS: 22.0 % Aortic Jxn: 2.2 cm EPSS: 1.4 cm asc Aorta Diam: 3.2 cm IVSd: 1.2 cm LVPWd: 1.1 cm LV weber. diameter/BSA (cm/m^2): 2.6 LV sys. diameter/BSA (cm/m^2): 2.1 LA dimension: 4.9 cm RA long axis: 4.9 cm LA A2 area: 25.1 cm2 RA area: 16.9 cm2 LA A4 area: 29.1 cm2 RA vol: 49.5 ml LA length (vol): 5.8 cm RA : 26.2 ml/m2 LA vol: 106.9 ml IVC diam: 2.0 cm LA vol index: 56.6 ml/m2 RVD1 (basal): 3.6 cm RVD2 (mid): 3.8 cm Doppler Measurements & Calculations Ao V2 max: 282.9 cm/sec LVOT Max Richard: 60.7 cm/sec Ao V2 mean: 198.2 cm/sec LV V1 max P.5 mmHg Ao max P.0 mmHg LV V1 VTI: 12.7 cm Ao mean P.0 mmHg GABRIEL(I,D): 0.70 cm2 Ao V2 VTI: 55.7 cm GABRIEL(V,D): 0.66 cm2 sev ratio: 0.23 GABRIEL indexed to BSA (cm^2/m^2): 0.37 AI P1/2t: 371.1 msec AI dec slope: 191.2 cm/sec2 MV E max richard: 108.1 cm/sec TR max richard: 268.2 cm/sec MV A max richard: 40.3 cm/sec TR max P.8 mmHg MV E/A: 2.7 PA V2 max: 83.0 cm/sec Med Peak E' Richard: 2.4 cm/sec PA V2 mean: 51.2 cm/sec E/E' med: 45.6 PA mean P.3 mmHg Lat Peak E' Richard: 2.7 cm/sec PA pr(Accel): 49.1 mmHg E/E' lat: 39.5 PA Accel Time: 0.06 sec E/e' average: 42.6 MV dec time: 0.14 sec Reading Physician:06:50 PM
--- NOTE | 2018-10-27 15:47 | PC.NURSE ---
1530- Admit from Emergency to room 105. Patient arrived via stretcher alert and cooperative with care. Patient on 4l cannula saturation 91% Patient very SOB with the work of moving from stretcher to bed. Recovery took about 5min. Patient has Rhonchi and Wheezes anteriorly. Patient denies chest pain at this time. Will monitor closely.
--- NOTE | 2018-10-27 16:16 | P.HP_ITS ---
History of Present Illness Date Patient Seen: 10/27/18 Time Patient Seen: 16:03 Chief complaint: HEART PAIN Narrative: 83-year-old male presented to the [facility] Emergency Department on October 27 with symptoms of persistent ongoing but intermittent chest pain. Patient had symptoms for several days. Not really responding to his usual nitroglycerin sublingual at home. Also increasingly weak and felt like his breathing was not quite right. In the ER he was evaluated to felt to have acute on chronic diastolic base congestive heart failure with elevated BNP and hypoxia, increased right pleural effusion on top of stable left pleural effusion, ECG with left bundle branch block and first-degree AV block which is baseline, elevated troponin above his usual baseline Patient's past history from a cardiac standpoint is really quite complex. He has known coronary artery disease status post bypass surgery, with stent in place in the circumflex but also has significant cardiac and pulmonary amyloidosis causing ischemia because of infiltrative affects as well as diastolic dysfunction because of its restrictive effect on the cardiac muscle.. Most recent echo shows normal left ventricular ejection fraction but patient also has moderate to severe aortic stenosis with moderate mitral stenosis and moderate aortic regurgitation. Patient was quite ill from a cardiac standpoint earlier in the year with persistent ongoing chest pain with any activity and even some pain at rest. He has responded to nitrates in various forms as well as Ranexa. 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 He was ill enough that he was placed on hospice earlier in the year but with appropriate and aggressive medical management mostly via Cardiology he improved enough that he voluntarily came off of hospice and has been doing well for the last several months. Cardiology was consulted by the ER physician. 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 They are not available to us over the weekend here at [facility]. However given patient's end-stage nature of his disease was not felt as though is really candidate for any interventions. It was felt as though continued medical management with treatment of his acute congestive heart failure would certainly be appropriate initial treatment options. Therefore I somewhat reluctantly agreed to admit the patient to [facility] despite the fact we do not have cardiology coverage in person here. 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) Spinal stenosis, site unspecified (Chronic 06/22/11) History of pulmonary embolism (Chronic) Chronic rhinitis (Chronic) Nephrotic syndrome with unspecified morphologic changes (Chronic 06/22/11) Memory loss (Chronic) BPH w urinary obs/LUTS (Chronic 06/22/11) CHF (congestive heart failure) (Chronic) Cardiac amyloidosis (Chronic) Chronic renal failure, stage 2 (mild) (Chronic) 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) Gastroesophageal reflux disease without esophagitis (Chronic 09/02/15) Nonrheumatic aortic valve stenosis (Chronic 02/15/17) LBBB (left bundle branch block) (Chronic) Chronic back pain (Chronic) Neuropathy (Chronic) Osteoarthritis (Chronic) Actinic keratosis (Resolved) Fractures (Resolved 2009) Plantar warts (Resolved) Surgical History S/P IVC filter (Chronic) History of angioplasty (Resolved) History of lumbosacral spine surgery (Resolved 2007) History of vasectomy (Resolved 1990) S/P coronary artery stent placement (Resolved 11/2016) Status post coronary artery bypass graft (Resolved 2008) Family & Social History Family History: Reviewed 10/27/18 by Navneet Rosado MD Social History: household members spouse,other lives independently Yes caregiver/support person No Safety & Behavioral: Feels Safe in Current Yes Environment Tobacco & Substance use: Smoking Status Never smoker alcohol intake current alcohol intake frequency 0-2 drinks per day Substance Use Type does not use Meds Home Medications Medication Instructions Recorded Confirmed Type aspirin 81 mg PO QDAY #0 10/08/12 10/27/18 History famotidine 20 mg PO QPM #0 01/05/17 10/27/18 History isosorbide mononitrate ER 60 mg 60 mg PO QAM #90 tab 03/20/18 10/27/18 Rx tablet,extended release 24 hr amlodipine 5 mg PO QPM 04/23/18 10/27/18 History morphine concentrate 0.25 ml PO Q1H PRN 04/23/18 10/27/18 History ranolazine [Ranexa] 500 mg PO BID 04/23/18 10/27/18 History citalopram 20 mg tablet 20 mg PO QDAY #90 tab 07/31/18 10/27/18 Rx nitroglycerin [Nitrostat] 0.4 mg SUBLINGUAL PRN PRN 10/27/18 10/27/18 History sennosides [senna] 1 tab PO DAILY PRN 10/27/18 10/27/18 History Allergies Allergy/AdvReac Type Severity Reaction Status Date / Time No Known Drug Allergies Allergy Unknown Verified 10/27/18 11:31 [NO KNOWN DRUG ALLERGIES] abalone Allergy Mild pt reports Uncoded 10/27/18 11:31 vomiting/GI distress Review of Systems Constitutional Constitutional: Denies excessive sweating, Denies fever(s), Denies headache(s), Reports weakness, Denies weight gain and Denies weight loss Eyes Eyes: Denies change in vision, Denies itchy eyes, Denies loss of vision and Denies other visual disturbances ENT Ears, Nose, Mouth, and Throat: No difficulty swallowing, No headache(s) and No neck pain Cardiovascular Cardiovascular: Denies fainting, Denies fast heart rate, Denies irregular heart rhythm, Denies rapid, pounding, or irregular heartbeat and Denies slow heart rate Respiratory Respiratory: Denies cough Gastrointestinal Gastrointestinal: Denies abdominal pain, Denies bloating, Denies change in bowel habits, Denies change in stool character, Denies dysphagia, Denies nausea , Denies vomiting and Denies hematemesis Genitourinary Genitourinary: Denies hematuria, Denies difficulty urinating and Denies urinary frequency Musculoskeletal Musculoskeletal: Denies abnormal gait, Denies myalgias, Denies arthralgias, Denies limited range of motion and Denies neck pain Integumentary/Breasts Skin/Breast: Denies bleeding lesions, Denies change in pigmentation, Denies changing lesions, Denies new lesions, Denies rash, Denies skin swelling, Denies sores and Denies jaundice Neurologic Neurologic: Denies abnormal gait, Denies behavioral changes, Denies syncope, Denies headache(s), Denies loss of vision and Reports weakness Psychiatric Psychiatric: Denies behavioral changes, Denies change in appetite, Denies difficulty concentrating, Denies auditory hallucinations, Denies mood swings and Denies suicidal ideation Endocrine Endocrine: Denies excessive sweating and Denies palpitations Hematologic/Lymphatic Hematologic/Lymphatic: Denies easy bleeding, Denies easy bruising and Denies lymphadenopathy Allergic/Immunologic Allergic/Immunologic: Denies itchy eyes Exam Vital Signs (past 8 hours): - 10/27/18 11:09 10/27/18 11:30 10/27/18 11:32 Temperature 97.5 F L Pulse Rate 83 76 80 Respiratory Rate 20 13 20 Blood Pressure 106/57 L Blood Pressure [Left Arm] 107/62 109/57 L Pulse Oximetry 78 L 93 97 10/27/18 12:00 10/27/18 12:30 10/27/18 13:00 Temperature Pulse Rate 77 77 77 Respiratory Rate 13 16 14 Blood Pressure Blood Pressure [Left Arm] 109/58 L 104/59 L 103/55 L Pulse Oximetry 94 93 92 10/27/18 13:30 10/27/18 14:00 10/27/18 14:30 Temperature Pulse Rate 84 84 81 Respiratory Rate 20 20 20 Blood Pressure Blood Pressure [Left Arm] 109/59 L 109/59 L 114/63 Pulse Oximetry 91 91 91 Oxygen Delivery Method Nasal Cannula Const General: cooperative, comfortable, well developed, well groomed, frail appearing and ill appearing Nutritional Appearance: well nourished Orientation: alert, awake and oriented x3 [facility] Head: normocephalic, atraumatic, No cyanosis of lips/distal nose, No raccoon eyes and No periorbital ecchymosis Ears: hearing grossly normal bilaterally and external ears normal Nose: external nose normal and nares normal Face and sinus: normal facial exam and face symmetric Mouth: oral mucosae normal, lip normal and tongue normal Eyes Alignment and Position: alignment normal Periorbital: periorbital findings normal Eyelids: eyelids normal Conjunctivae: conjunctivae normal Sclera: sclerae normal Cornea: corneas normal Pupils: PERRL EOM: EOM intact bilaterally Neck Neck: normal visual inspection, full ROM, trachea midline and No anterior neck swelling Thyroid: not diffusely enlarged Carotids: normal carotid upstroke Lymphatic: No lymphadenopathy Chest Chest: normal inspection of the chest, No crepitus and No tenderness Breast inspection: normal inspection of the breasts Resp Effort & Inspection: normal respiratory effort, able to speak in complete sentences, no audible wheezes, no cough, no retractions and not tachypneic Auscultation: no rales, rhonchi (Right base), no wheezes and no rubs Tactile Fremitus: tactile fremitus absent Cardio Palpation: normal PMI Rate: regular rate Rhythm: regular rhythm Heart Sounds: S1 normal, S2 normal and murmur systolic at the right sternal border Bruits: no carotid bruits Pulses: brachial pulses present and radial pulses present GI Inspection: normal to inspection Palpation: soft and no hepatosplenomegaly Percussion: normal to percussion Auscultation: normal bowel sounds Back/Spine/Pelvis Back: No CVA tenderness Cervical Spine: normal cervical lordosis Thoracic/Lumbar Spine: thoracic and lumbar spine normal to inspection Skin General: no rashes or lesions noted, No excoriations, No induration, No jaundice , No mottling and No petechiae Lesions: no lesions (no worrisome/abl lesions) Rashes: no rashes Trauma: no lacerations or abrasions Wounds: no wounds Hair: normal Neuro General: alert, awake, oriented x3, tone normal and normal light touch, pain and propioception Cranial Nerves: CN's II-XI intact bilaterally Speech: speech normal Motor: muscle tone normal throughout Sensory Exam: no sensory deficits noted DTR's: Rt Biceps: 2+, Lt Biceps: 2+, Rt Brachioradialis: 2+, Lt Brachioradialis : 2+, Rt Patellar: 2+ and Lt Patellar: 2+ Extrem General: normal to inspection, no clubbing, cyanosis or edema and No calf tenderness Right upper extremity: normal to inspection Left upper extremity: normal to inspection Right lower extremity: normal to inspection Left lower extremity: normal to inspection Psych Appearance: grossly normal Mental Status: mental status grossly normal Speech and Movement: speech and movement normal and speech clear Mood: congruent mood Affect: normal affect Attitude: cooperative Thought Process: normal Thought Content: normal Judgment: judgment good Objective Imaging Chest x-ray: My impression: Increased right pleural effusion versus most recent study from earlier this year. Overall small amount of fluid however. Left pleural effusion unchanged from earlier, chronic infiltrate right middle lobe unchanged from previous EC lead shows left bundle branch block and first-degree AV block essentially unchanged from previous Labs Result Diagrams: 10/27/18 11:17 10/27/18 11:17 Labs: Laboratory Results - last 24 hr 10/27/18 10/27/18 11:17 11:17 WBC 10.3 RBC 4.14 L Hgb 13.7 Hct 40.1 L MCV 96.9 MCH 33.1 MCHC 34.2 RDW 13.7 Plt Count 159 Neut % (Auto) 84.6 H Lymph % (Auto) 6.2 L [place] % (Auto) 8.5 Eos % (Auto) 0.4 L Baso % (Auto) 0.3 Neut # (Auto) 8700 H Sodium 141 Potassium 4.8 Chloride 102 Carbon Dioxide 24 BUN 30 H Creatinine 1.30 H Estimated GFR 52.7 L BUN/Creatinine Ratio 23.1 H Glucose 118 H Calcium 9.4 Total Bilirubin 1.2 AST 23 ALT 23 Alkaline Phosphatase 158 H Total Creatine Kinase 34 L CK-MB (CK-2) TNP CK-MB (CK-2) Rel Index TNP Troponin I 0.124 H* B-Natriuretic Peptide 550.0 H Total Protein 7.2 Albumin 4.4 Globulin 2.8 Albumin/Globulin Ratio 1.6 Lipase 47 Assessment & Plan Plan: Assessment/Plan Narrative: 1. Acute on chronic congestive heart failure based on diastolic dysfunction-I think this might likely be causing his chest pain and his troponin leak. 1st order of business I think as suggested by Cardiology would be to treat his heart failure with diuretic therapy. His diuretic therapy had been held over the last several months because of stability but will go ahead and give him IV furosemide at this point. Recheck echocardiogram looking for change in his overall cardiac status. 2. Coronary artery disease-patient not a candidate for interventions. Continue to follow troponin but perhaps his troponin leak and elevations more of a demand ischemia than anything else. This point he is chest pain-free and I would use his presence or absence of chest pain is a marker for whether not he would benefit from additional antianginal or arterial dilating or cardiac perfusion medication such as topical nitrates IV nitroglycerin or even IV heparin etc. 3. Cognitive dysfunction-patient with longstanding cognitive dysfunction although appears to be a baseline currently. Observe for evidence of delirium which she is at higher risk because he is in the ICU and course as his baseline cognitive dysfunction 4. Patient's other medical problems appear relatively stable and he will continue his usual medications 5. DVT prophylaxis-Lovenox will be employed 6. Code status-patient's previous requested and reconfirms me today that he would not want to be resuscitated in the event of a sudden event such as cardiac or respiratory arrest. Therefore he has made a no code do not resuscitate. Patient clearly requires inpatient hospitalization in ICU setting because of the serious nature of his illness as described above. He has end-stage cardiac issues and potentially end-stage respiratory issues as well. He will more likely than not be in the hospital greater than 48 hr that will span 2 separate midnights. Note: 2Nd troponin returned at 2.9. Patient remains asymptomatic however. Going to fully anticoagulate him with Lovenox at 1 milligram/kilos 0 b.i.d.. Patient's GFR while not quite normal does support this. If has additional symptoms then would need to re-evaluate, perhaps try topical or IV nitroglycerin.
[2018-10-27] MEDS: AMLODIPINE 5 MG TABLET PO (17:19)
[2018-10-27] MEDS: ENOXAPARIN 40 MG/0.4 ML SYRINGE SUBCUT (17:19)
[2018-10-27] MEDS: ENOXAPARIN 30 MG/0.3 ML SYRINGE SUBCUT (18:23)
[2018-10-27] MEDS: NITROGLYCERIN 0.4 MG SL TAB SL ×2 (18:33→22:27)
--- NOTE | 2018-10-27 18:35 | PC.NURSE ---
1830- Patient states he feels terrible. Patient is diaphoretic and states his chest is hurting. Patient given nitrostat per order. Chest pressure relieved with one tab. Will monitor.
[2018-10-27] MEDS: RANOLAZINE 500 MG TAB.ER.12H PO (21:19)
--- NOTE | 2018-10-27 22:41 | PC.NURSE ---
2230- Patient c/o chest pain 4/10 relieved with NTG SL x1. Will monitor.
[2018-10-28] VITALS (17 sets, daily range): BP systolic 94–124; BP diastolic 42–97; PULSE 73–100; RESP 16–33; TEMP 36.3–37.2; O2SAT 88–94
[2018-10-28] MEDS: MORPHINE 2 MG/ML INJ IV (04:12)
[2018-10-28 05:46] LABS: BUN Creatinine Ratio 26.4 (6-22); Blood Urea Nitrogen 37 mg/dL (9-20); Carbon Dioxide 26 mmol/L (22-32); Chloride 100 mmol/L (98-107); Estimated Glomerular Filt Rate 48.4 mL/min (>60); Glucose 115 mg/dL (80-110); HEMOLYSIS < 15 (0-50); Potassium 4.6 mmol/L (3.4-5.1); Sodium 138 mmol/L (137-145)
[2018-10-28] MEDS: FUROSEMIDE 40 MG/4 ML VIAL IV (06:57)
--- NOTE | 2018-10-28 08:19 | PC.NURSE ---
Addendum entered by Clair Templeton R.N. 10/28/18 14:01: pt had one episode of chest pain that was resolved with ntg x1 under tongue and 2mg iv morphine- otherwise no complaints- very poor appetite and voiding per urinal- echo complete and awaiting results. Original Note: pt denies any chest pain this am and is reflective on his life - he shares the places he has traveled to and yung and caves that he has has explored, how he outlived hospice care and that has been a gift he also states I can't complain- but I am going to anyway - supportive care given. He is sitting on edge of bed and is visibly short of breath with speech.
[2018-10-28] MEDS: ENOXAPARIN 80 MG/0.8 ML SYRINGE 70 MG SUBCUT ×2 (08:48→18:34)
[2018-10-28] MEDS: RANOLAZINE 500 MG TAB.ER.12H PO ×2 (08:50→21:27)
[2018-10-28] MEDS: CITALOPRAM 20 MG TABLET PO (08:51)
[2018-10-28] MEDS: SODIUM CHLORIDE 0.9% FLUSH 10 ML IV ×2 (08:51→21:28)
[2018-10-28] MEDS: SENNOSIDES 8.6 MG TABLET PO (08:51)
[2018-10-28] MEDS: ASPIRIN EC 81 MG TABLET PO (08:51)
[2018-10-28] MEDS: NITROGLYCERIN 0.4 MG SL TAB SL (08:52)
[2018-10-28] MEDS: ISOSORBIDE MONONITRATE ER 60 MG PO (08:55)
--- NOTE | 2018-10-28 10:44 | P.PN_ITS ---
Subjective Date Patient Seen: 10/28/18 Time Patient Seen: 10:40 Interval history: Patient had an episode of chest pain this morning. Took a nitroglycerin and 2 mg of morphine to make it go away. Oxygen requirements to keep saturation at 90% plus-minus have ranged from 3 L via nasal cannula to 5 L nasal cannula. Lab work shows troponin has jumped up from less than 1 to a level of 2 and then 8 with a 4th number pending. BNP has tripled now 1700 Patient of self as I see him this morning is asymptomatic. Spouse is here. Patient is agreeable to spouse is request that to full aggressive interventions be entertained including angiography and/or manipulation of current stents or replacements stents. Would not agree to bypass surgery however. Echo has been ordered but not yet performed (it is a weekend at [facility]) Exam Vital Signs (past 8 hours): - 10/28/18 03:00 10/28/18 04:15 10/28/18 06:00 Temperature 97.4 F L Pulse Rate 85 89 83 Respiratory Rate 24 30 H 19 Blood Pressure 119/73 105/60 103/56 L Pulse Oximetry 92 88 L 92 10/28/18 08:08 10/28/18 08:52 10/28/18 09:31 Temperature 98.9 F Pulse Rate 82 100 H 80 Respiratory Rate 28 H 33 H Blood Pressure 107/43 L 107/43 L 118/67 Pulse Oximetry 93 94 10/28/18 09:37 Temperature Pulse Rate 78 Respiratory Rate Blood Pressure 118/97 H Pulse Oximetry Oxygen Delivery Method Nasal Cannula Oxygen Flow Rate 5 Narrative Exam Narrative: Unchanged from yesterday's Objective Labs Result Diagrams: 10/27/18 11:17 10/28/18 05:12 Labs: Laboratory Results - last 24 hr 10/27/18 10/27/18 10/27/18 11:17 11:17 15:55 WBC 10.3 RBC 4.14 L Hgb 13.7 Hct 40.1 L MCV 96.9 MCH 33.1 MCHC 34.2 RDW 13.7 Plt Count 159 Neut % (Auto) 84.6 H Lymph % (Auto) 6.2 L [place] % (Auto) 8.5 Eos % (Auto) 0.4 L Baso % (Auto) 0.3 Neut # (Auto) 8700 H Sodium 141 Potassium 4.8 Chloride 102 Carbon Dioxide 24 BUN 30 H Creatinine 1.30 H Estimated GFR 52.7 L BUN/Creatinine Ratio 23.1 H Glucose 118 H Calcium 9.4 Total Bilirubin 1.2 AST 23 ALT 23 Alkaline Phosphatase 158 H Total Creatine Kinase 34 L CK-MB (CK-2) TNP CK-MB (CK-2) Rel Index TNP Troponin I 0.124 H* B-Natriuretic Peptide 550.0 H Total Protein 7.2 Albumin 4.4 Globulin 2.8 Albumin/Globulin Ratio 1.6 Lipase 47 Nasal Screen MRSA (PCR) Negative for mrsa 10/27/18 10/27/18 10/28/18 16:00 23:46 05:12 WBC RBC Hgb Hct MCV MCH MCHC RDW Plt Count Neut % (Auto) Lymph % (Auto) [place] % (Auto) Eos % (Auto) Baso % (Auto) Neut # (Auto) Sodium 138 Potassium 4.6 Chloride 100 Carbon Dioxide 26 BUN 37 H Creatinine 1.40 H Estimated GFR 48.4 L BUN/Creatinine Ratio 26.4 H Glucose 115 H Calcium 9.0 Total Bilirubin AST ALT Alkaline Phosphatase Total Creatine Kinase CK-MB (CK-2) CK-MB (CK-2) Rel Index Troponin I 2.920 H* 8.320 H* B-Natriuretic Peptide Total Protein Albumin Globulin Albumin/Globulin Ratio Lipase Nasal Screen MRSA (PCR) 10/28/18 05:12 WBC RBC Hgb Hct MCV MCH MCHC RDW Plt Count Neut % (Auto) Lymph % (Auto) [place] % (Auto) Eos % (Auto) Baso % (Auto) Neut # (Auto) Sodium Potassium Chloride Carbon Dioxide BUN Creatinine Estimated GFR BUN/Creatinine Ratio Glucose Calcium Total Bilirubin AST ALT Alkaline Phosphatase Total Creatine Kinase CK-MB (CK-2) CK-MB (CK-2) Rel Index Troponin I B-Natriuretic Peptide 1750.0 H Total Protein Albumin Globulin Albumin/Globulin Ratio Lipase Nasal Screen MRSA (PCR) Assessment & Plan Plan: Assessment/Plan Narrative: 1. Acute on chronic congestive heart failure based on diastolic dysfunction- more evidence of worsening heart failure based on elevated BNP and at least lack of improvement in oxygen requirement. I am going to increase his diuretic therapy for now. Also need to reassess for ischemia as below. 2. Coronary artery disease-patient not felt to be a candidate for interventions based on most recent evaluation but clearly with elevated troponin something new and different going on. Echo is yet to be done but I have a pending 4th troponin in the works. If that is elevated he certainly I think would need to have angiography performed given that patient and family desire full aggressive treatment of what ever can be done. If the next troponin has dropped off then perhaps holding on that and obtaining echocardiogram while continuing to treat as above makes most sense. I did put him on full dose 1 milligram/kilogram Lovenox for anticoagulation. Continue with usual medications. Patient's blood pressures bit borderline and he is asymptomatic currently therefore I do not think needs to be on IV nitro anything different. I will discuss with Cardiology once I have that last troponin. 3. Cognitive dysfunction-patient with longstanding cognitive dysfunction although appears to be a baseline currently. Observe for evidence of delirium which she is at higher risk because he is in the ICU and course as his baseline cognitive dysfunction 4. Patient's other medical problems appear relatively stable and he will continue his usual medications 5. DVT prophylaxis-Lovenox will be employed
--- NOTE | 2018-10-28 15:13 | CM.IDA ---
DCP Assessment Note: Pt is an 83 yo male, resident of [place]. Pt admitted for cardiac w/u, possible transfer to [facility] for further cardiac w/u. Pt's PCP is Dr Rosado and insurance is [facility]. Reviewed medical POC w/ Dr Rosado this morning, he explained that pt may be a candidate for transfer to [facility] for further cardiac w/u depending on results of tests ordered today. This [employer]EL[employer] explained a brief assessment would be done until further notice of pt staying here or transferring. Met w/pt, spouse Lina Hall and their son and his gf at bedside, explained role. Lina Hall stated they are in a waiting game now and DC needs remain unknown. Pt has been quite fragile for some time and has required assist at home, details not gathered today from . Pt had Hospice in the past; pt got better and graduated off hospice. Lina Hall wishes there was an in between service since she felt pt and she were not ready for Hospice service but wanted closer observation of pt's needs at home. Discussed, briefly, the palliative care approach to care but unfortunately not available in [place] at this time. All appreciative of the visit and hope to discuss DCP again if pt remains here at . ISAIAH Linder Discharge Planning/Care Management CM Discharge Assessment Start: 10/28/18 15:10 Freq: Status: Active Protocol: Document 10/28/18 15:10 MACKENZIE (Rec: 10/28/18 15:13 MACKENZIE [id number]) Discharge Planning Assessment Assigned Student Activities Director ISAIAH Salcido DPOA/Assigned Designee Name Lina Perez, spouse Contact Information [phone], cell Advance Directives? Yes History Provided By Patient Prior Living Arrangements House Household Members spouse other Type of transporation used prior to Relies on Others admit Independent with ADL's No Is patient alert and oriented? Yes Comment Complex cardiac history, impaired cognition on H+P Barriers to Discharge Yes Discharge Plan Transfer to Higher Level of Care Referrals Initiated None needed Additional Comment Transfer is likely but not confirmed as of this afternoon Whiteboard Updated in Patient Room with Yes name and ext. # of Student Activities Director Review Status In Process
[2018-10-28] MEDS: AMLODIPINE 5 MG TABLET PO (18:34)
[2018-10-29] VITALS (9 sets, daily range): BP systolic 92–116; BP diastolic 42–64; PULSE 75–84; RESP 18–28; TEMP 36.4–37.2; O2SAT 92–96
--- NOTE | 2018-10-29 00:06 | PC.NURSE ---
glynn note pt did not have any episodes of chest pain this shift. pt still with SOB with minimal activity.
[2018-10-29] MEDS: MORPHINE 2 MG/ML INJ IV ×2 (05:01→09:39)
[2018-10-29] MEDS: ENOXAPARIN 80 MG/0.8 ML SYRINGE 70 MG SUBCUT (06:33)
--- NOTE | 2018-10-29 08:26 | P.PN_ITS ---
Subjective Date Patient Seen: 10/29/18 Time Patient Seen: 08:23 Interval history: Patient is essentially unchanged clinically. Still gets fatigued with any activity. Still reporting dyspnea. No further chest pain however. Exam Vital Signs (past 8 hours): - 10/29/18 04:52 10/29/18 07:33 Temperature 97.5 F L 98.6 F Pulse Rate 84 81 Respiratory Rate 28 H 19 Blood Pressure 92/44 L 116/64 Pulse Oximetry 94 93 Oxygen Delivery Method Nasal Cannula Oxygen Flow Rate 5 Narrative Exam Narrative: Scattered wheezes throughout, diminished breath sounds right base unchanged Objective Imaging Echocardiogram: Radiologist's impression: Worsening global hypokinesis suggesting worsening cardiomyopathy, compared to most recent study done at [facility] Labs Result Diagrams: 10/27/18 11:17 10/28/18 05:12 Labs: Laboratory Results - last 24 hr 10/28/18 10:23 Troponin I 8.290 H* Assessment & Plan Plan: Assessment/Plan Narrative: 1. Acute on chronic congestive heart failure based on diastolic dysfunction- worsening cardiomyopathy. I am going to increase his diuretic therapy this morning. I did not do that yesterday over fears of being too aggressive with diuretic therapy. I will also ask Cardiology to see him in person and provide input 2. Coronary artery disease-echo did not show evidence of a new wall motion abnormality to suggest something other than his circumflex lesion. After speaking with Cardiology as per my previous note that is not an area that is amenable to any further intervention. More likely than not that is the culprit causing his elevated troponin. Plan to recheck troponin this morning and again get Cardiology input. He has had 48 hr of full dose Lovenox and I will discontinue that and put him back on low-dose/VTE prophylaxis dosing Lovenox as of this morning (he received his full dose this morning so his next dose will be tomorrow morning). 3. Cognitive dysfunction-patient with longstanding cognitive dysfunction although appears to be a baseline currently. Observe for evidence of delirium which she is at higher risk because he is in the ICU and course as his baseline cognitive dysfunction 4. Patient's other medical problems appear relatively stable and he will continue his usual medications Note: Greater than 30 minutes was spent evaluating the patient on the floor, including examining the patient, discussing clinical course with clinical and nursing staff, reviewing clinical course in the computer, preparing documentation and writing orders for continued management of care, discussing status with family as appropriate, reviewing plans for the next 24 hours with both patient/family and nursing staff as appropriate.
[2018-10-29] MEDS: SODIUM CHLORIDE 0.9% FLUSH 10 ML IV ×2 (09:15→21:03)
[2018-10-29] MEDS: FUROSEMIDE 100 MG/10 ML VIAL 80 MG IV (09:16)
[2018-10-29] MEDS: CITALOPRAM 20 MG TABLET PO (09:29)
[2018-10-29] MEDS: RANOLAZINE 500 MG TAB.ER.12H PO ×2 (09:29→21:02)
[2018-10-29] MEDS: ISOSORBIDE MONONITRATE ER 60 MG PO (09:29)
[2018-10-29] MEDS: ASPIRIN EC 81 MG TABLET PO (09:29)
[2018-10-29 10:08] LABS: BUN Creatinine Ratio 37.7 (6-22); Blood Urea Nitrogen 49 mg/dL (9-20); Calcium 8.9 mg/dL (8.4-10.2); Carbon Dioxide 25 mmol/L (22-32); Chloride 99 mmol/L (98-107); Estimated Glomerular Filt Rate 52.7 mL/min (>60); Glucose 139 mg/dL (80-110); HEMOLYSIS < 15 (0-50); Potassium 4.3 mmol/L (3.4-5.1); Sodium 138 mmol/L (137-145)
--- NOTE | 2018-10-29 14:42 | PC.NURSE ---
0700-Received report, bedside safety checks done. assumed care of patient. Patient on 5L NC spO2 65-96% 0900 Patient weaned to 4L NC spO2-95%. Patient c/o generalized pain; he has chronic back pain @baseline. Per 's report patient occasionally takes liquid morphine at home for pain. 1400-Patient up to chair w/SBA, no c/o of chest pain and no shortness of breath; tolerated activity. 1500-VSS, afebrile, HR in the 70s-80s. consuming 10-30% meals, consumed 100% of nutritional drink. Report to evening RN.
--- NOTE | 2018-10-29 16:42 | PM.CN ---
History of Present Illness Date Patient Seen: 10/29/18 Chief complaint: HEART PAIN Reason for consult: abnormal troponin Narrative: This 83 years old male who has a history of inferior posterior GA and 2 vessels CABG in 2008 with CALDWELL graft to LAD, SVG graft to OM, drug-coated stent placement to the mid circumflex in October 2016, status post repeat left heart catheterization in December 18, 2016 that time patent CALDWELL graft to LAD, patent SVG graft to OM, no critical disease of circumflex stent no critical disease of RCA, chronic chest pain syndrome, cardiac and pulmonary amyloidosis, pleural effusion status post thoracentesis, CLL, chronic left bundle-branch block, chronic first-degree AV block, about moderate aortic stenosis, significant dementia,history of CHF, got admitted on October 28, 2018 because of worsening chest pain and requiring multiple doses of sublingual nitroglycerin as well as liquid morphine in the home. According to the , patient was having chest pain the night before hospital admission. On the day of hospital admission, around 10 AM his chest pain was pretty intense. Nitroglycerin and morphine didn't help much. Patient had some dry heaves. No significant vomiting. [place] some shortness of breath. Unable to tell about radiation. Patient was seen in the ER and got admitted. In the hospital patient has severe worsening of troponin. He underwent 2-D echo on October 28, 2018 which revealed normal-size left ventricle with predominantly global moderate to severe hypokinesis with LV ejection fraction 35-40% stage III diastolic dysfunction, moderate aortic stenosis with mean gradient about 18 mmHg, peak aortic velocity 2.8 m/s, moderate central mitral regurgitation, pulmonary artery systolic pressure about 45 mmHg with moderate TR. On x-ray chest there was left greater than right bilateral pleural effusion. On x-ray chest there was left greater than right bilateral pleural effusion and pulmonary congestion. There was cardiomegaly. Cardiology consult was sought. At present patient is in ICU. He is sitting and trying to eat his lunch. He feels fatigued and tired but not having active chest pain. Denies any PND orthopnea or palpitation or bleeding or strokelike symptoms. 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) Spinal stenosis, site unspecified (Chronic 06/22/11) History of pulmonary embolism (Chronic) Chronic rhinitis (Chronic) Nephrotic syndrome with unspecified morphologic changes (Chronic 06/22/11) Memory loss (Chronic) BPH w urinary obs/LUTS (Chronic 06/22/11) CHF (congestive heart failure) (Chronic) Cardiac amyloidosis (Chronic) Chronic renal failure, stage 2 (mild) (Chronic) 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) Gastroesophageal reflux disease without esophagitis (Chronic 09/02/15) Nonrheumatic aortic valve stenosis (Chronic 02/15/17) LBBB (left bundle branch block) (Chronic) Chronic back pain (Chronic) Neuropathy (Chronic) Osteoarthritis (Chronic) Actinic keratosis (Resolved) Fractures (Resolved 2009) Plantar warts (Resolved) Surgical History S/P IVC filter (Chronic) History of angioplasty (Resolved) History of lumbosacral spine surgery (Resolved 2007) History of vasectomy (Resolved 1990) S/P coronary artery stent placement (Resolved 11/2016) Status post coronary artery bypass graft (Resolved 2008) Social History marital status: number of children: 3 household members: spouse and other lives independently: Yes caregiver/support person: No housing: house pets and animals: Yes education level: other (College + some graduate schooling.) occupational status: other (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) 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 travel 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: 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 ([place]) leisure activities: exercise (Walking), music and reading Smoking Status: Never smoker Tobacco: How many years used: 0 quit status: quit date established (Never Started) second hand exposure: No alcohol intake: current substance use type: does not use Meds Home Medications Medication Instructions Recorded Confirmed Type aspirin 81 mg PO QDAY #0 10/08/12 10/27/18 History famotidine 20 mg PO QPM #0 01/05/17 10/27/18 History isosorbide mononitrate ER 60 mg 60 mg PO QAM #90 tab 03/20/18 10/27/18 Rx tablet,extended release 24 hr amlodipine 5 mg PO QPM 04/23/18 10/27/18 History morphine concentrate 0.25 ml PO Q1H PRN 04/23/18 10/27/18 History ranolazine [Ranexa] 500 mg PO BID 04/23/18 10/27/18 History citalopram 20 mg tablet 20 mg PO QDAY #90 tab 07/31/18 10/27/18 Rx nitroglycerin [Nitrostat] 0.4 mg SUBLINGUAL PRN PRN 10/27/18 10/27/18 History sennosides [senna] 1 tab PO DAILY PRN 10/27/18 10/27/18 History Allergies Allergy/AdvReac Type Severity Reaction Status Date / Time No Known Drug Allergies Allergy Unknown Verified 10/27/18 11:31 [NO KNOWN DRUG ALLERGIES] abalone Allergy Mild pt reports Uncoded 10/27/18 11:31 vomiting/GI distress Review of Systems Review of Systems All systems reviewed & are unremarkable except as noted in HPI and below Exam Vital Signs (past 8 hours): - 10/29/18 08:59 10/29/18 10:19 10/29/18 12:18 Temperature 98.2 F Pulse Rate 84 77 Respiratory Rate 24 19 Blood Pressure 106/57 L 93/42 L Pulse Oximetry 94 95 92 10/29/18 13:27 10/29/18 15:10 Temperature 98.4 F Pulse Rate 83 77 Respiratory Rate 20 22 Blood Pressure 108/60 99/61 Pulse Oximetry 93 96 Oxygen Delivery Method Nasal Cannula Oxygen Flow Rate 4 Const General: cooperative Other: dementia [facility] Head: normal to inspection Other: Eyes Other: no significant anemia Neck Other: positive hepatojugular reflux Chest Other: bilateral basilar decreased air entry and dullness Resp Other: bilateral basal crepitation occasional rhonchi Cardio Other: S1 appears normal P2 appears loud with paradoxically split, grade 2 by 6 diffuse ejection systolic murmur, no obvious S3-S4 GI Other: nontender unable to palpate liver or spleen Neuro Other: conscious, able to move all the 4 extremities Extrem Other: 1+ bilateral pedal edema, varicose veins Psych Other: conscious but has memory loss Objective Labs Result Diagrams: 10/27/18 11:17 10/29/18 09:26 Labs: Laboratory Results - last 24 hr 10/29/18 10/29/18 09:26 09:26 Sodium 138 Potassium 4.3 Chloride 99 Carbon Dioxide 25 BUN 49 H Creatinine 1.30 H Estimated GFR 52.7 L BUN/Creatinine Ratio 37.7 H Glucose 139 H Calcium 8.9 Troponin I 5.190 H* B-Natriuretic Peptide 1620.0 H Assessment & Plan (1) Acute combined systolic and diastolic heart failure: Current visit: Yes Status: Acute (2) Non-ST elevation myocardial infarction (NSTEMI): Current visit: Yes Status: Acute (3) Moderate aortic stenosis: Current visit: Yes Status: Acute (4) Cardiac amyloidosis: Current visit: Yes Status: Acute (5) Left bundle branch block: Current visit: Yes Status: Acute Plan: Assessment/Plan Narrative: I had long discussion with the patient's as well as with the and Dr. Rosado. I discussed about further cardiac workup including left heart catheterization however at present decided to manage patient conservatively without any aggressive cardiac workup. EKG revealed sinus rhythm with left bundle branch block and first-degree AV block with [place] interval about 200 ms. He has a chronic left bundle-branch block. QTC 447 ms. Patient used to take atorvastatin 80 mg daily at home. I will put him back on statin. We will start at least 40 mg daily dose. He will benefit with dual antiplatelet therapy. Will recommend aspirin 81 mg and Plavix 75 mg daily. In view of LV dysfunction, he will benefit with CATRACHO inhibitor. We'll stop amlodipine and replaced with lisinopril 1.25 mg daily to begin with. Once CHF gets better, blood pressure remains stable, consider small tolerable dose of beta ernesto. Patient is getting IV Lasix 80 mg. At present he does not appears to be significant volume overload. Cut down Lasix to 40 mg IV daily. Bilateral pleural effusion appears to be multifactorial. He has chronic bilateral pleural effusion. Patient has history of cardiac as well as pulmonary amyloidosis. He was evaluated at [facility] and according to the he is not a candidate for new drug trial. If with IV diuretic pleural effusion do not get better consider thoracentesis if clinically indicated. Patient will need close watch on electrolytes. Tomorrow, my associate Dr. Perez will be available to see the patient. Thanks for the cardiology consult. Total time spent for this consultation at least 75 minutes with more than 50% time [id number] counseling and coordination of care. This note was generated utilizing voice recognition software. While attempts have been made to correct mistakes, common errors may occur, including substitution of words that sound phonetically similar to the intended word as well as random substitution errors. Please take this into consideration and use clinical context when necessary.
--- NOTE | 2018-10-29 16:51 | P.CONS_ITS ---
History of Present Illness Date Patient Seen: 10/29/18 Chief complaint: HEART PAIN Reason for consult: abnormal troponin Narrative: This 83 years old male who has a history of inferior posterior [place] and 2 vessels CABG in 2008 with CALDWELL graft to LAD, SVG graft to OM , drug-coated stent placement to the mid circumflex in October 2016, status post repeat left heart catheterization in December 18, 2016 that time patent CALDWELL graft to LAD, patent SVG graft to OM, no critical disease of circumflex stent no critical disease of RCA, chronic chest pain syndrome, cardiac and pulmonary amyloidosis, pleural effusion status post thoracentesis, CLL, chronic left bundle-branch block, chronic first-degree AV block, about moderate aortic stenosis, significant dementia,history of CHF, got admitted on October because of worsening chest pain and requiring multiple doses of sublingual nitroglycerin as well as liquid morphine in the home. According to the , patient was having chest pain the night before hospital admission. On the day of hospital admission, around 10 AM his chest pain was pretty intense. Nitroglycerin and morphine didn't help much. Patient had some dry heaves. No significant vomiting. [place] some shortness of breath. Unable to tell about radiation. Patient was seen in the ER and got admitted. In the hospital patient has severe worsening of troponin. He underwent 2-D echo on October 28, 2018 which revealed normal-size left ventricle with predominantly global moderate to severe hypokinesis with LV ejection fraction 35-40% stage III diastolic dysfunction, moderate aortic stenosis with mean gradient about 18 mmHg, peak aortic velocity 2.8 m/s, moderate central mitral regurgitation, pulmonary artery systolic pressure about 45 mmHg with moderate TR. On x-ray chest there was left greater than right bilateral pleural effusion. On x-ray chest there was left greater than right bilateral pleural effusion and pulmonary congestion. There was cardiomegaly. Cardiology consult was sought. At present patient is in ICU. He is sitting and trying to eat his lunch. He feels fatigued and tired but not having active chest pain. Denies any PND orthopnea or palpitation or bleeding or strokelike symptoms. 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) Spinal stenosis, site unspecified (Chronic 06/22/11) History of pulmonary embolism (Chronic) Chronic rhinitis (Chronic) Nephrotic syndrome with unspecified morphologic changes (Chronic 06/22/11) Memory loss (Chronic) BPH w urinary obs/LUTS (Chronic 06/22/11) CHF (congestive heart failure) (Chronic) Cardiac amyloidosis (Chronic) Chronic renal failure, stage 2 (mild) (Chronic) 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) Gastroesophageal reflux disease without esophagitis (Chronic 09/02/15) Nonrheumatic aortic valve stenosis (Chronic 02/15/17) LBBB (left bundle branch block) (Chronic) Chronic back pain (Chronic) Neuropathy (Chronic) Osteoarthritis (Chronic) Actinic keratosis (Resolved) Fractures (Resolved 2009) Plantar warts (Resolved) Surgical History S/P IVC filter (Chronic) History of angioplasty (Resolved) History of lumbosacral spine surgery (Resolved 2007) History of vasectomy (Resolved 1990) S/P coronary artery stent placement (Resolved 11/2016) Status post coronary artery bypass graft (Resolved 2008) Social History marital status: number of children: 3 household members: spouse and other lives independently: Yes caregiver/support person: No housing: house pets and animals: Yes education level: other (College + some graduate schooling.) occupational status: other (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) 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 ([place]) leisure activities: exercise (Walking), music and reading Smoking Status: Never smoker Tobacco: How many years used: 0 quit status: quit date established (Never Started) second hand exposure: No alcohol intake: current substance use type: does not use Meds Home Medications Medication Instructions Recorded Confirmed Type aspirin 81 mg PO QDAY #0 10/08/12 10/27/18 History famotidine 20 mg PO QPM #0 01/05/17 10/27/18 History isosorbide mononitrate ER 60 mg 60 mg PO QAM #90 tab 03/20/18 10/27/18 Rx tablet,extended release 24 hr amlodipine 5 mg PO QPM 04/23/18 10/27/18 History morphine concentrate 0.25 ml PO Q1H PRN 04/23/18 10/27/18 History ranolazine [Ranexa] 500 mg PO BID 04/23/18 10/27/18 History citalopram 20 mg tablet 20 mg PO QDAY #90 tab 07/31/18 10/27/18 Rx nitroglycerin [Nitrostat] 0.4 mg SUBLINGUAL PRN PRN 10/27/18 10/27/18 History sennosides [senna] 1 tab PO DAILY PRN 10/27/18 10/27/18 History Allergies Allergy/AdvReac Type Severity Reaction Status Date / Time No Known Drug Allergies Allergy Unknown Verified 10/27/18 11:31 [NO KNOWN DRUG ALLERGIES] abalone Allergy Mild pt reports Uncoded 10/27/18 11:31 vomiting/GI distress Review of Systems Review of Systems All systems reviewed & are unremarkable except as noted in HPI and below Exam Vital Signs (past 8 hours): - 10/29/18 08:59 10/29/18 10:19 10/29/18 12:18 Temperature 98.2 F Pulse Rate 84 77 Respiratory Rate 24 19 Blood Pressure 106/57 L 93/42 L Pulse Oximetry 94 95 92 10/29/18 13:27 10/29/18 15:10 Temperature 98.4 F Pulse Rate 83 77 Respiratory Rate 20 22 Blood Pressure 108/60 99/61 Pulse Oximetry 93 96 Oxygen Delivery Method Nasal Cannula Oxygen Flow Rate 4 Const General: cooperative Other: dementia [facility] Head: normal to inspection Other: Eyes Other: no significant anemia Neck Other: positive hepatojugular reflux Chest Other: bilateral basilar decreased air entry and dullness Resp Other: bilateral basal crepitation occasional rhonchi Cardio Other: S1 appears normal P2 appears loud with paradoxically split, grade 2 by 6 diffuse ejection systolic murmur, no obvious S3-S4 GI Other: nontender unable to palpate liver or spleen Neuro Other: conscious, able to move all the 4 extremities Extrem Other: 1+ bilateral pedal edema, varicose veins Psych Other: conscious but has memory loss Objective Labs Result Diagrams: 10/27/18 11:17 10/29/18 09:26 Labs: Laboratory Results - last 24 hr 10/29/18 10/29/18 09:26 09:26 Sodium 138 Potassium 4.3 Chloride 99 Carbon Dioxide 25 BUN 49 H Creatinine 1.30 H Estimated GFR 52.7 L BUN/Creatinine Ratio 37.7 H Glucose 139 H Calcium 8.9 Troponin I 5.190 H* B-Natriuretic Peptide 1620.0 H Assessment & Plan (1) Acute combined systolic and diastolic heart failure: Current visit: Yes Status: Acute (2) Non-ST elevation myocardial infarction (NSTEMI): Current visit: Yes Status: Acute (3) Moderate aortic stenosis: Current visit: Yes Status: Acute (4) Cardiac amyloidosis: Current visit: Yes Status: Acute (5) Left bundle branch block: Current visit: Yes Status: Acute Plan: Assessment/Plan Narrative: I had long discussion with the patient's as well as with the and Dr. Rosado. I discussed about further cardiac workup including left heart catheterization however at present decided to manage patient conservatively without any aggressive cardiac workup. EKG revealed sinus rhythm with left bundle branch block and first-degree AV block with [place] interval about 200 ms. He has a chronic left bundle-branch block. QTC 447 ms. Patient used to take atorvastatin 80 mg daily at home. I will put him back on statin. We will start at least 40 mg daily dose. He will benefit with dual antiplatelet therapy. Will recommend aspirin 81 mg and Plavix 75 mg daily. In view of LV dysfunction, he will benefit with CATRACHO inhibitor. We'll stop amlodipine and replaced with lisinopril 1.25 mg daily to begin with. Once CHF gets better, blood pressure remains stable, consider small tolerable dose of beta ernesto. Patient is getting IV Lasix 80 mg. At present he does not appears to be significant volume overload. Cut down Lasix to 40 mg IV daily. Bilateral pleural effusion appears to be multifactorial. He has chronic bilateral pleural effusion. Patient has history of cardiac as well as pulmonary amyloidosis. He was evaluated at [facility] and according to the he is not a candidate for new drug trial. If with IV diuretic pleural effusion do not get better consider thoracentesis if clinically indicated. Patient will need close watch on electrolytes. Tomorrow, my associate Dr. Perez will be available to see the patient. Thanks for the cardiology consult. Total time spent for this consultation at least 75 minutes with more than 50% time [id number] counseling and coordination of care. This note was generated utilizing voice recognition software. While attempts have been made to correct mistakes, common errors may occur, including substitution of words that sound phonetically similar to the intended word as well as random substitution errors. Please take this into consideration and use clinical context when necessary.
[2018-10-29] MEDS: ATORVASTATIN 20 MG TABLET 40 MG PO (21:02)
[2018-10-30] VITALS (17 sets, daily range): BP systolic 76–132; BP diastolic 41–66; PULSE 64–86; RESP 19–27; TEMP 36.2–37; O2SAT 90–96
--- NOTE | 2018-10-30 | DI.RAD.S_ITS ---
PROCEDURE: XR CHEST 1V INDICATIONS: right effusion TECHNIQUE: One view of the chest was acquired. COMPARISON: [facility], CR, XR CHEST 1V, 10/27/2018, 11:20. FINDINGS: Surgical changes and devices: Sternotomy wires. Lungs and pleura: No pneumothorax identified. There is left retrocardiac left basilar consolidation and small left pleural effusion. There is also patchy medial right basilar opacity which appear unchanged. There are diffuse hazy widespread bilateral groundglass opacities Mediastinum: Mediastinal contours appear normal. Heart size is normal. Bones and chest wall: No suspicious bony lesions. Overlying soft tissues appear unremarkable. Bilateral shoulder joint degeneration. IMPRESSION: Redemonstration of pulmonary edema with superimposed consolidation in the left lung base and patchy medial right lower lobe opacities. No definite interval change since 10/27/18. Dictated by: Chris Bhandari M.D. on 10/30/2018 at 10:28 Approved by: Chris Bhandari M.D. on 10/30/2018 at 10:32
[2018-10-30] MEDS: NITROGLYCERIN 0.4 MG SL TAB SL ×3 (02:56→09:12)
[2018-10-30] MEDS: SODIUM CHLORIDE 0.9% FLUSH 10 ML IV ×4 (03:04→21:02)
[2018-10-30] MEDS: MORPHINE 2 MG/ML INJ IV ×4 (03:04→22:53)
[2018-10-30 06:01] LABS: BUN Creatinine Ratio 34.3 (6-22); Blood Urea Nitrogen 48 mg/dL (9-20); Calcium 8.8 mg/dL (8.4-10.2); Carbon Dioxide 29 mmol/L (22-32); Chloride 98 mmol/L (98-107); Estimated Glomerular Filt Rate 48.4 mL/min (>60); Glucose 94 mg/dL (80-110); HEMOLYSIS < 15 (0-50); Potassium 4.1 mmol/L (3.4-5.1); Sodium 137 mmol/L (137-145)
--- NOTE | 2018-10-30 08:01 | PM.PN.1 ---
Subjective Date Patient Seen: 10/30/18 Time Patient Seen: 08:01 Interval history: Patient really has no new complaints this morning Apparently set up in the chair for several hours yesterday. Still gets exhausted with any activity. Is having ongoing chest pain. Apparently he has been having more chest pain at home and spouse has been giving him oral morphine (which is left over from when he was on hospice). Did respond to nitroglycerin on 1 occasion and nitroglycerin plus IV morphine here another occasion but admits to low level ongoing chest discomfort. Apparently this is what he has been getting the oral morphine at home for. Exam Vital Signs (past 8 hours): - 10/30/18 00:38 10/30/18 02:56 10/30/18 03:00 Temperature 98.3 F Pulse Rate 79 84 79 Respiratory Rate 23 19 Blood Pressure 105/65 110/57 L 110/57 L Pulse Oximetry 92 90 L 10/30/18 04:49 10/30/18 07:26 10/30/18 07:58 Temperature 97.6 F 98.2 F Pulse Rate 77 77 Respiratory Rate 23 21 Blood Pressure 116/63 109/66 Pulse Oximetry 93 96 Oxygen Delivery Method Nasal Cannula Oxygen Flow Rate 5 Narrative Exam Narrative: Unchanged from previous, diminished breath sounds at right base appear if anything somewhat improved but probably unchanged Objective Labs Result Diagrams: 10/27/18 11:17 10/30/18 04:46 Labs: Laboratory Results - last 24 hr 10/29/18 10/29/18 10/30/18 09:26 09:26 04:46 Sodium 138 137 Potassium 4.3 4.1 Chloride 99 98 Carbon Dioxide 25 29 BUN 49 H 48 H Creatinine 1.30 H 1.40 H Estimated GFR 52.7 L 48.4 L BUN/Creatinine Ratio 37.7 H 34.3 H Glucose 139 H 94 Calcium 8.9 8.8 Troponin I 5.190 H* B-Natriuretic Peptide 1620.0 H 10/30/18 04:46 Sodium Potassium Chloride Carbon Dioxide BUN Creatinine Estimated GFR BUN/Creatinine Ratio Glucose Calcium Troponin I B-Natriuretic Peptide 1420.0 H Assessment & Plan Plan: Assessment/Plan Narrative: 1. Acute on chronic congestive heart failure based on diastolic dysfunction and now based on echocardiogram also systolic dysfunction with ejection fraction of 30% plus-minus. Therefore this would be probably categorized as acute on chronic diastolic based congestive heart failure as well as acute systolic base congestive heart failure. I continue to believe patient would benefit from aggressive diuretic therapy. His renal function remains at baseline. He has had good urine output. Unfortunately oxygen requirements have not really improved. Continue with current dose IV furosemide but I am going to recheck chest x-ray today. If his right-sided pleural effusion has increased then it may be more amenable to thoracentesis to drain that fluid which patient has had done before and would clearly improve his respiratory status. However the amount of fluid present on admission chest x-ray in my opinion was not sufficient to allow for safe thoracentesis even under ultrasound guidance. Patient's amlodipine was discontinued by Cardiology yesterday because of the new systolic dysfunction. He had a low-dose CATRACHO-inhibitor instituted which makes sense. Continue with that (1st dose to be given today) as well as diuretic therapy and his antianginals and continue to follow carefully. I am not sure what other options we have for this unfortunate gentleman. His long-time pharmacy operations specialist is available to see him here in the hospital today and will see if he has any other thoughts regarding short-term and long-term management 2. Coronary artery disease-patient with a non ST elevation OK. This is based on elevated troponin and evidence of new systolic dysfunction. Not a candidate for invasive therapies. Continue with medical management as per Cardiology. I do not see any reason not to have oral morphine immediate release available to the patient for comfort at this point and I will order that as well. Not exactly a direct treatment for his chest pain, if ischemic, but if we can make him more comfortable certainly that would be entirely appropriate in my opinion. Continue with oxygen supplementation on all of the above med/treatments. 3. Cognitive dysfunction-patient with longstanding cognitive dysfunction although appears to be a baseline currently. Observe for evidence of delirium which she is at higher risk because he is in the ICU and course as his baseline cognitive dysfunction. Per nursing staff he is beginning to have some confusion and disorientation and it would be helpful perhaps to increase his activity etc 4. Patient's other medical problems appear relatively stable and he will continue his usual medications 5. DVT prophylaxis-Lovenox will be continued Note: Greater than 30 minutes was spent evaluating the patient on the floor, including examining the patient, discussing clinical course with clinical and nursing staff, reviewing clinical course in the computer, preparing documentation and writing orders for continued management of care, discussing status with family as appropriate, reviewing plans for the next 24 hours with both patient/family and nursing staff as appropriate.
[2018-10-30] MEDS: ASPIRIN EC 81 MG TABLET PO (08:47)
[2018-10-30] MEDS: ISOSORBIDE MONONITRATE ER 60 MG PO (08:47)
[2018-10-30] MEDS: RANOLAZINE 500 MG TAB.ER.12H PO ×2 (08:47→21:03)
[2018-10-30] MEDS: LISINOPRIL 10 MG TABLET PO (08:47)
[2018-10-30] MEDS: CITALOPRAM 20 MG TABLET PO (08:47)
[2018-10-30] MEDS: CLOPIDOGREL 75 MG TABLET PO (08:47)
[2018-10-30] MEDS: ENOXAPARIN 40 MG/0.4 ML SYRINGE SUBCUT (08:48)
[2018-10-30] MEDS: FUROSEMIDE 100 MG/10 ML VIAL 60 MG IV (09:13)
--- NOTE | 2018-10-30 12:53 | P.PN_ITS ---
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 He has had progressive memory and cognitive deficits, and given this, a conservative approach has been pursued for his multiple cardiac issues. He has been admitted with a prolonged episode of chest discomfort and dyspnea was found to be hypoxic with a right pleural effusion and subsequent troponins have been markedly elevated, significantly higher than his baseline chronic elevation in troponin. His ECG has remained with a LBBB but no obvious changes. I personally reviewed his echocardiogram from 2 days ago which shows moderate global hypokinesis with an ejection fraction likely around 40% predominantly in a global pattern although slightly worse in the posterior wall but clearly with reduced systolic function globally compared to his previous echocardiogram in June 2017. He continues to have significant aortic stenosis but is not appear to be critical by 2D imaging and continues to have moderate aortic regurgitation and moderate mitral regurgitation. His PA pressure was was moderately elevated but similar to his previous echocardiogram although CVP was clearly higher. He has been diuresed over the last 72 hr around 1.5 L by I's & O's. He currently states that he feels ?fine? although admits that his memory makes assessment difficult and cannot recollect any chest discomfort recently. He currently denies any discomfort or dyspnea and has had no significant orthopnea. Exam Vital Signs (past 8 hours): - 10/30/18 04:49 10/30/18 07:26 10/30/18 07:35 Temperature 97.6 F 98.2 F Pulse Rate 77 82 Respiratory Rate 23 Blood Pressure 116/63 109/66 Pulse Oximetry 93 10/30/18 07:58 10/30/18 08:47 10/30/18 09:09 Temperature Pulse Rate 77 86 Respiratory Rate 21 27 H Blood Pressure 109/66 109/66 132/62 Pulse Oximetry 96 95 10/30/18 09:12 10/30/18 11:42 10/30/18 11:45 Temperature 98.6 F Pulse Rate 85 72 Respiratory Rate 24 Blood Pressure 132/62 104/53 L Pulse Oximetry 90 L 95 Oxygen Delivery Method Nasal Cannula Oxygen Flow Rate 4 Narrative Exam Narrative: General: Elderly white male lying comfortably in bed supine Skin: Warm and dry Lungs: Dullness at both bases but without obvious rales or wheeze CV: Regular rate and rhythm with occasional premature beats. Her fairly distant heart tones with a dear normal S1 and S2 with a 2/6 high-pitched systolic murmur at the right upper sternal border. JVP is 6 to 8 cm with moderate respiratory variation. Abdomen: Soft, nondistended and nontender, without obvious hepatosplenomegaly. Extremities: Warm without edema. Neuro: Grossly intact, moves all 4 extremities. Psych: Clear memory deficits but jovial and remembers me from the outpatient setting Objective Labs Result Diagrams: 10/27/18 11:17 10/30/18 04:46 Labs: Laboratory Results - last 24 hr 10/30/18 10/30/18 04:46 04:46 Sodium 137 Potassium 4.1 Chloride 98 Carbon Dioxide 29 BUN 48 H Creatinine 1.40 H Estimated GFR 48.4 L BUN/Creatinine Ratio 34.3 H Glucose 94 Calcium 8.8 B-Natriuretic Peptide 1420.0 H Assessment & Plan Plan: Assessment/Plan Narrative: 1. Chest pain with significantly abnormal troponin. While his troponin is significantly elevated, highly suggestive of an acute ischemic event, his echocardiogram shows more global LV systolic function without any obvious focality, raising the question whether his presentation could be simply reflective of heart failure and his troponin elevation due to his notable hypoxia. Certainly, an acute coronary syndrome cannot be excluded but I continue to believe that he is not an interventional candidate which he supports today and has previously been established with discussions with his . Thus, I would agree with conservative medical management regardless of the cause. I agree with instituting clopidogrel and providing morphine on an as -needed basis for pain control. At this point, I believe the mainstay of therapy should be diuresis as he is clearly volume overloaded and would continue with IV diuresis at least for the next several days, monitoring his creatinine, potassium, and magnesium levels. Once he is symptomatically improved and stable, I suspect that he can be discharged on oral furosemide with close observation of his electrolytes and renal function. Again, with his multitude of serious cardiac issues, if he continues to have disabling chest pain or dyspnea, re-referral back to hospice care may be appropriate if his quality of life is sufficiently low. 2. Aortic stenosis. In reviewing his echocardiogram, I continue to believe that his aortic stenosis is of insufficient severity to be producing his heart failure. Again, I do not believe it is an interventional candidate. 3. Bilateral pleural effusions. I agree that if diuresis cannot achieve adequate symptomatic reduction of his pleural effusions that thoracentesis could be considered. 4. Progressive left ventricular systolic dysfunction. Again, etiology of this remains unclear. I would agree with using low-dose CATRACHO inhibitor although would be cautious in worsening his renal function or lowering his blood pressure too much. I would push harder on fluoro some I would before advancing CATRACHO inhibitor extensively. Recommendations: 1. Continue with IV furosemide, targeting another 2 to 3 L of diuresis. 2. Monitor renal function and electrolytes, maintaining potassium greater than 4.0 and magnesium greater than 2.0. 3. Once he is symptomatically improved, discharge home on low-dose oral furosemide. 4. Consider thoracentesis if his pleural effusions remain refractory. 5. Cautiously advance CATRACHO inhibitor, only if his blood pressure and renal function allow. 6. Consider rehab referral back to hospice if he fails to significantly symptomatically improved. I have spent 90 min reviewing medical records and the images of his current admission and interviewing, examining, discussing with the patient.
--- NOTE | 2018-10-30 13:37 | PC.NURSE ---
Patient refusing shower/bath-states; I don't want to do anything. Will offer before shift change and/or pass to evening shift.
--- NOTE | 2018-10-30 14:12 | PC.NURSE ---
0700-Received report, bedside safety checks done. Assumed care of patient. c/o chest pain /10 w/ spO2n 90%; one dose Nitro administered and oxygen increased to 6L; chest pain relieved and patient back on 4L NC w/ [id number]%, BP stable. Assessment completed; patient appears more confused regarding time of day and forgetful; reoriented. 0800-Patient ambulated to Bathroom w/SBA; SOB reported, denied dizziness, Had one BM and one missed UOP. consumed 75% of breakfast no nausea/no emesis. 0900-Patient to xray for CXR; upon return from xray patient became tachycardic and complained of chest pain; SL Nitroglycerin administered w/ relief. 1300-Patient refusing bath care; states he is tired and just wants to rest. VSS w/ spO2 97% on 4L NC. 1430-Lia COLON stopped to check on patient and recommending hospice.
--- NOTE | 2018-10-30 15:00 | PC.NURSE ---
1500-Called Patient's w/update with Dr. Alston recommendations per his note. updated on plan of care.
--- NOTE | 2018-10-30 16:11 | CM.DPC ---
DCP/continued: Reviewed chart. Initially it was thought that patient would transfer to higher level of care for cardiac treatment/monitoring. It was then determined that patient's process consultant Dr. Perez would see patient at [facility] Spoke with RN/Marianne today. She reports patient currently resting comfortably. Patient's spouse/Lina Hall not at bedside. Apparently, cardiology mentioned that the best option for patient is to continue to keep him comfortable. RN reports that spouse mentioned to her this AM that patient previously on hospice. Apparently, he did well enough to get discharged from services (earlier this year)? INSERTER OPERATOR placed call to [facility] to check on previous services. Per Car, patient was not enrolled with [facility]. Therefore, most likely patient was on service with [facility]. This might be best option for patient if no additional treatment indicated. P: Pending. Suggest order from MD for Hospice informational visit if MD/Dr. Rosado in agreement. If agreeable will need to discuss with patient and spouse which hospice agency they would prefer. Per Car at [facility] they are available to do informational visit on 10-31-18. ISAIAH Rivas
[2018-10-30] MEDS: SODIUM CHLORIDE 0.9% 250 ML IV (21:00)
[2018-10-30] MEDS: ATORVASTATIN 20 MG TABLET 40 MG PO (21:03)
[2018-10-30] MEDS: MORPHINE 15 MG IR TABLET PO (21:04)
--- NOTE | 2018-10-30 22:27 | PC.NURSE ---
1755 - Pt c/o chest pain following evening meal. SBP in the 80's. Morphine given slowly IVP. BP following MS, 77/48 MAP 61, Pt denies lightheadedness, but states that usually only nitro helps completely aleviate pain. Call placed to Dr. Schofield, notified of above, reviewed I and O and Emar. Orders obtained. 1830 - Pt reports pain resolved. Discussed treatment plan if pain reoccurs. Pt verbalized understanding. 2099 - Pt reports return of chest pain. BP 80/44 Map 55. Bolus intiated, PO morphine given. Monitor. 0 - Bolus complete. BP 76/41 map 58. 2230 - BP 90/50 map 66. Pt reports chest pain as 1 of 10 following PO pain med. Pt agreeable to continue pain management with Morphine at this time. Monitor. Call light in reach.
[2018-10-31] VITALS (14 sets, daily range): BP systolic 84–114; BP diastolic 33–60; PULSE 58–72; RESP 13–23; TEMP 35.9–36.7; O2SAT 88–99
[2018-10-31 05:22] LABS: Blood Urea Nitrogen 57 mg/dL (9-20); Calcium 8.5 mg/dL (8.4-10.2); Carbon Dioxide 29 mmol/L (22-32); Chloride 99 mmol/L (98-107); Estimated Glomerular Filt Rate 44.7 mL/min (>60); Glucose 101 mg/dL (80-110); HEMOLYSIS < 15 (0-50); Sodium 138 mmol/L (137-145)
--- NOTE | 2018-10-31 06:36 | PC.NURSE ---
Patient was drowsy and slept through the night, appropriate and following commands when awake, no c/o chest pain or dyspnea. SR, 1st AVB, BBB and frequent PACs, remains hypotensive, but asymptomatic, see vital trends. On 4L NC, SpO2 >92%, does desat to 85% when he removes NC while asleep. Denies urge to void this am. SBA to chair.
--- NOTE | 2018-10-31 07:49 | P.PN_ITS ---
Subjective Date Patient Seen: 10/31/18 Time Patient Seen: 07:44 Interval history: Patient is sitting up in the chair. He actually looks like he is more comfortable than I have seen him in a couple of days. Had some more chest pain receives more morphine overnight and around that time became modestly hypotensive with blood pressure around 80. It has come up some from then but has been certainly on the lower side over the last 12 hr or so. No complaints at all. Sed getting up to the chair was not is difficult as he would have thought. Chest x-ray done yesterday shows dramatic improvement in right-sided pleural effusion by my interpretation with minimal fluid still present on the left side however as well as infiltrative process as seen before, and evidence of pulmonary edema Exam Vital Signs (past 8 hours): - 10/31/18 00:12 10/31/18 02:30 10/31/18 04:00 Temperature 96.7 F L 96.8 F L Pulse Rate 62 59 L 59 L Respiratory Rate 17 13 14 Blood Pressure 87/33 L 85/45 L 87/49 L Pulse Oximetry 96 97 97 10/31/18 05:00 10/31/18 06:00 10/31/18 07:40 Temperature 98 F Pulse Rate 60 59 L 58 L Respiratory Rate 15 16 23 Blood Pressure 99/48 L 92/51 L 87/44 L Pulse Oximetry 96 98 98 Oxygen Delivery Method Nasal Cannula Oxygen Flow Rate 5 Objective Labs Result Diagrams: 10/27/18 11:17 10/31/18 05:00 Labs: Laboratory Results - last 24 hr 10/31/18 05:00 Sodium 138 Potassium 4.0 Chloride 99 Carbon Dioxide 29 BUN 57 H Creatinine 1.50 H Estimated GFR 44.7 L BUN/Creatinine Ratio 38.0 H Glucose 101 Calcium 8.5 Assessment & Plan Plan: Assessment/Plan Narrative: 1. Congestive heart failure-I appreciate input from Dr. Perez. He and I spoke at length yesterday. I agree that at this point aggressive or somewhat aggressive diuretic therapy to try and reduce overall lung volume seems to be the most appropriate. I am pleased to see that his effusion on the right side is much improved. Unfortunately his oxygen requirement has not really improved. He has been somewhat hypotensive in part probably from the lisinopril which I have discontinued. Morphine of course will produce hypotension as well. At this point continue with management including monitoring renal function and electrolytes. As of this morning his renal function remains within his baseline range and so I will continue with the IV furosemide without change. 2. Coronary artery disease-difficult to know whether not patient actually had a myocardial infarction. I agree with Dr. Perez that the lack of focal abnormality on echo is a bit problematic in identifying actual myocardial infarction but I still think that is probably the likely culprit here. There has been an overall global decline in function. Patient continues with chest pain difficult to know whether it is truly ischemic related or other source of chest pain. Continue to use his antianginals including his long-acting nitrates , his Ranexa, and morphine as needed including oral morphine as well as the IV morphine. 3. Cognitive dysfunction-patient appears to be a baseline 4. Disposition-patient clearly is going to go home from here but whether not that will be with hospice or home physical therapy would be helpful is yet to be determined. I will have Physical therapy see him today an effort to assess his overall abilities and disabilities. I do anticipate he will improve somewhat before discharge but it may be that he will not dramatically improved from here. If that is the case then hospice would be a more viable option. He and I discussed that somewhat briefly this morning and I think the patient anyway would be amenable to that if indeed he has not really able to do much of anything. 5. DVT prophylaxis-Lovenox will be continued Note: Greater than 30 minutes was spent evaluating the patient on the floor, including examining the patient, discussing clinical course with clinical and nursing staff, reviewing clinical course in the computer, preparing documentation and writing orders for continued management of care, discussing status with family as appropriate, reviewing plans for the next 24 hours with both patient/family and nursing staff as appropriate.
[2018-10-31] MEDS: FUROSEMIDE 100 MG/10 ML VIAL 60 MG IV (08:51)
[2018-10-31] MEDS: ENOXAPARIN 40 MG/0.4 ML SYRINGE SUBCUT (08:51)
[2018-10-31] MEDS: CLOPIDOGREL 75 MG TABLET PO (08:51)
[2018-10-31] MEDS: CITALOPRAM 20 MG TABLET PO (08:51)
[2018-10-31] MEDS: ASPIRIN EC 81 MG TABLET PO (08:51)
[2018-10-31] MEDS: SODIUM CHLORIDE 0.9% FLUSH 10 ML IV ×2 (08:52→21:19)
[2018-10-31] MEDS: RANOLAZINE 500 MG TAB.ER.12H PO ×2 (08:52→21:19)
[2018-10-31] MEDS: ISOSORBIDE MONONITRATE ER 60 MG PO (08:52)
[2018-10-31] MEDS: SODIUM CHLORIDE 0.9% 250 ML IV (09:35)
[2018-10-31] MEDS: NITROGLYCERIN 0.4 MG SL TAB SL (09:36)
--- NOTE | 2018-10-31 12:01 | PT.IIE ---
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 and stage 1 through stage 4 chronic kidney disease, or unspecified chronic kidney disease (10/27/18) Non-ST elevation (NSTEMI) myocardial infarction (10/27/18) Nonrheumatic aortic (valve) stenosis (10/27/18) Cardiomyopathy in diseases classified elsewhere (10/27/18) Left bundle-branch block, unspecified (10/27/18) Acute combined systolic (congestive) and diastolic (congestive) heart failure (10/27/18) Surgical History (Last Reviewed 10/29/18 @ 16:43 by Natasha Barriga MD) S/P IVC filter (Chronic) History of angioplasty (Resolved) History of lumbosacral spine surgery (Resolved 2007) History of vasectomy (Resolved 1990) S/P coronary artery stent placement (Resolved 11/2016) Status post coronary artery bypass graft (Resolved 2008) Medical History (Last Reviewed 10/29/18 @ 16:43 by Natasha Barriga MD) Impaired cognition (Chronic 09/07/16) Essential hypertension (Chronic 06/22/11) 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) Coronary artery disease involving yurok coronary artery 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 (Chronic 09/02/15) Hyperlipidemia (Chronic 06/22/11) Peripheral vascular disease (Chronic) 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) Spinal stenosis, site unspecified (Chronic 06/22/11) History of pulmonary embolism (Chronic) Chronic rhinitis (Chronic) Nephrotic syndrome with unspecified morphologic changes (Chronic 06/22/11) Memory loss (Chronic) BPH w urinary obs/LUTS (Chronic 06/22/11) CHF (congestive heart failure) (Chronic) Cardiac amyloidosis (Chronic) Chronic renal failure, stage 2 (mild) (Chronic) 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) Gastroesophageal reflux disease without esophagitis (Chronic 09/02/15) Nonrheumatic aortic valve stenosis (Chronic 02/15/17) LBBB (left bundle branch block) (Chronic) Chronic back pain (Chronic) Neuropathy (Chronic) Osteoarthritis (Chronic) Actinic keratosis (Resolved) Fractures (Resolved 2009) Plantar warts (Resolved) Physical Therapy Inpatient Evaluation/Re-Eval M1 PT/OT-IP Prior Functional Status Start: 10/31/18 11:27 Freq: NEEDED Status: Active Protocol: Document 10/31/18 10:45 HH (Rec: 10/31/18 12:00 [email or web address]) Medical Review Prior Functional Status Medical History Reviewed Yes Diet/Fluid Consistency Regular Mobility and Gait Pt is an independent ambulator at home and community without AD Activities of Daily Living and IADL's Pt is an independent for ADLs and IADLs. Pt reports he is aware of his stamina who will sit down for when he gets tired. Social History Household Members spouse other Living Arrangements House Number of Floors (Floors) One Floor Number of Stairs To Enter/Railing? 2 VICK from garage to house without handrails Home Environment Walk in Shower Built-In Shower Seat Home Equipment Four Wheel Walker Employment Status Retired Additional Social History Comment Pt lives with his at a one story home who shares house duties together. Pt does not need assistance for ADLs and IADLs. Pt tends to drive for short distance and his drives for long distance. Pt's reports pt is aware of his activity tolerance. M2 PT-IP Current Condition Start: 10/31/18 11:27 Freq: NEEDED Status: Active Protocol: Document 10/31/18 10:45 HH (Rec: 10/31/18 12:00 [email or web address]) Physical Therapy Current Condition Current Condition Evaluation Date 10/31/18 Treatment Diagnosis Acute respiratory failure due to CHF, difficulty in walking, muscle weaknes Onset Date 10/27/18 Precautions Other Precautions Constant monitoring for BP, HR and chest pain. M3 PT-IP Subjective Start: 10/31/18 11:27 Freq: NEEDED Status: Active Protocol: Document 10/31/18 10:45 HH (Rec: 10/31/18 12:00 [email or web address]) Subjective Physical Therapy Visit Type Type Initial Evaluation Visit Start Time 10:45 Visit Stop Time 11:25 Total Visit Minutes 40 Notes Pt agreeable to mobilize with PT and his in bedside. Pt is on NS 4L O2/min. Pt denies of chest pain after receiving medication an hour early. Pt reports he went to bathroom with nursing staff with FWW a few times since yesterday and did c/o fatigue. Number of FORESTRY WORKERS Visits 0 Physical Therapy Visit Comments Patient Comments Pt reports I had some chest pain last night and early this morning, but not at this point possibly due to the medication i took early this morning. I went to bathroom a few times with staff but i did feel tired. I got out of bed to the chair this morning and it was pretty good. Patient Goals To go home To perform daily activities in pain free to cont ex for overall strengthening Therapy Pain Assessment Pain Present Pain Present Denied Pain M4 PT-IP Mobility and Gait Start: 10/31/18 11:27 Freq: NEEDED Status: Active Protocol: Document 10/31/18 10:45 (Rec: 10/31/18 12:00 [email or web address]) PT-Bed Mobility Assessment Scooting Scooting to Edge of Bed Standby Assistance PT-Transfer Assessment Sit to and From Stand Sit to and from Stand Standby Assistance 1 Person Assistance Use of Upper Extremities Equipment Transfer Assistive Device Front Wheeled Walker Transfers Transfer Destination Chair Transfer Technique Stand Step Pivot Transfer Ability Level of Assist Standby Assistance Comments Mobility Comments Sitting BP = 103/50 HR 68 standing BP= 92/45 HR 63 Post amb BP= 94/42 HR 66 pt performs scooting forward and backward in reclining chair with SBA; sit to stand with FWW SBA; stand step pivot transfer to chair x 2 with FWW SBA. Pt does not show any signs of LOB and able to perform standing marching. Pt is able to maintain standing position for 6 minutes without signs of distress. Gait Assessment Gait Gait Assistance Required: Standby Assistance Distance (Feet) 20 Assistive Devices Assistive Device Gait Belt Front Wheeled Walker Gait Deviations General Gait Pattern Decreased Stride Length Decreased Feet Clearance Factors Limiting Gait Function Factors Limiting Gait Function Decreased Activity Tolerance Decreased Strength Pain Comments Gait Comments Pt amb approx 20 feet in total around bedside with FWW SBA. Pt is able to maintain stable BP ranged from 92-100/48-42 , HR 63-66 and SpO2 95%. Pt does not show any acute distress and signs of LOB. Pt is also able to perform standing marching with UE touch on FWW for 15 times x 3 sets. Pt c/o slight dizzy and request to rest at the end of tx session. BP remains stable. PT-Balance Assessment Sitting Balance and Reactions Static Sitting Balance Ability Normal Dynamic Sitting Balance Ability Normal Standing Balance and Reactions Static Standing Balance Ability Normal Dynamic Standing Balance Ability Good M5 PT-IP Objective Assessments Start: 10/31/18 11:27 Freq: NEEDED Status: Active Protocol: Document 10/31/18 10:45 HH (Rec: 10/31/18 12:00 [email or web address]) Orientation Orientation/Cognition Level of Alertness Alert Orientation Name Age Birthday Month Date Year Day of Week Place Situation Gross Range of Motion Upper Extremity ROM Assessment Within Functional Limits Lower Extremity ROM Assessment Within Functional Limits Strength Upper Extremity Strength Assessment Within Functional Limits Lower Extremity Strength Assessment Within Functional Limits Coordination Assessment Gross Coordination Gross Coordination WNL Sensation Assessment Sensation Gross Sensation WNL M6 PT-IP Treatment Start: 10/31/18 11:27 Freq: NEEDED Status: Active Protocol: Document 10/31/18 10:45 HH (Rec: 10/31/18 12:00 HH [email or web address]) Physical Therapy Treatment Exercises Exercises Ankle Pumps Gluteal Sets Quad Sets Heel Slides Education Education Provided Safety Other Treatments Other Treatment Performed standing marching in place with UE finger touch on FWW M7 PT-IP Assessment and Plan Start: 10/31/18 11:27 Freq: NEEDED Status: Active Protocol: Document 10/31/18 10:45 HH (Rec: 10/31/18 12:00 [email or web address]) PT Summary Assessment and Plan Potential Rehabilitation Potential Excellent Status of Condition at Evaluation Evolving Summary Impairments Pain Strength Bed Mobility Transfers Gait Activity Tolerance Progress Towards Goals Progressing Toward Goals Assessment Summary Pt is a very pleasant and motivated person with a supportive spouse. DAVDI Roldan reports pt c/o chest pain earlier this morning who received medication after around 10am. Pt denies any chest pain upon assessment. Pt is able to perform overall transfer activity and gait training with FWW SBA with no acute distress and c/o fatigue . BP, HR and SpO2 maintains stable during eval session. Pt is safe to perform OOB activity with nursing staff with FWW SBA. Pt's medical status is cont evolving at this point due to intermittent c/o chest pain since last night. Pt cont require skilled therapy to increase pt's activity tolerance and strenght prior to D/C home. Communicated with pt's who stated Pt might receive hospice after D/C but she also hopes that pt could receive home health PT for overall strengthening. In my professional opinion, pt will be a good candidate for home health PT due to his high functional PLOF and current medical condition. Goals Bed Mobility Goal Independent Transfer Goal Independent Gait Goal Independent Cane Front Wheel Walker Gait Distance 200 Other Goals sit to stand x 5 times in 15 seconds stair training 3 steps x 2 rounds Days to Meet Goals 3 Frequency of Treatment Frequency Of Treatment Once a Day Treatment Plan Physical Therapy Treatment Plan Bed Mobility Training Transfer Training Gait Training Therapeutic Exercise Balance Retraining Discharge Planning Other Recommendations and Next Treatment cont monitor BP, HR, SpO2, Focus chest pain gait training; toilet trasnfer ; standing without UE support. Recommendations To Nursing Amount of Assist Needed Standby Assistance 1 Person Assist Discharge Recommendations PT Discharge Recommendations Home Health
--- NOTE | 2018-10-31 13:12 | PC.NURSE ---
Day Shift Note Pt up and sitting in chair on AM assessment, reports feeling much better than previous days. On 4L NC with sats 96%, coarse crackles bilaterally, and SOB with any exertion. Was able to participate in PT. Patient reported chest pain 3/10 and received nitroglycerin SL x1 along with a 250 ml bolus due to BP <100. On reassessment pain reported 1/10 - patient declined additional nitro and then denied pain 30 min later. BP 103/50 after bolus.
--- NOTE | 2018-10-31 15:04 | CM.DPC ---
DCP Cont: Reviewed chart. Met w/pt's spouse to review DCP. Lina Hall wants to take pt home upon DC. This AURICULOTHERAPIST asks about Hospice referral ? Lina Hall says she would like to review this w/ Dr Rosado and feels strongly about not calling Hospice unless she is certain pt will need it. This AURICULOTHERAPIST strongly encouraged Lina Hall to consider the referral if she feels pt is appropriate. A referral can also be made from home. Lina Hall denies needs from this AURICULOTHERAPIST today and is appreciative of the visit. AURICULOTHERAPIST team will continue to follow closely. MACKENZIE
--- NOTE | 2018-10-31 16:58 | PM.PN.1 ---
Subjective Date Patient Seen: 10/31/18 Interval history: Patient is sitting on chair. He appears better than day before yesterday when I saw him. At present no active chest pain or worsening shortness of breath or PND orthopnea or new cardiovascular symptoms however had some chest pain in the nighttime and received morphine as well as blood pressure decreased to 80s, Yunior inhibitor was discontinued. At present he is getting 60 mg IV Lasix. Exam Vital Signs (past 8 hours): - 10/31/18 09:21 10/31/18 09:36 10/31/18 10:41 Temperature Pulse Rate 63 59 L Respiratory Rate Blood Pressure 92/42 L 84/51 L Pulse Oximetry 97 10/31/18 10:43 10/31/18 12:00 10/31/18 15:43 Temperature 97.8 F 98.1 F Pulse Rate 60 58 L 72 Respiratory Rate 13 14 18 Blood Pressure 84/51 L 114/48 L 99/60 Pulse Oximetry 97 99 97 Oxygen Delivery Method Nasal Cannula Oxygen Flow Rate 4 Const Other: No significant distress Neck Other: No obvious JVD or hepatojugular reflux today Chest Other: Decreased bilateral basal air entry with some dullness Resp Other: Some basal crepitation without any obvious rhonchi Cardio Other: S1 appears normal, 2nd heart sound paradoxically split, no S3 no S4 GI Other: No obvious pulsatile mass Neuro Other: Memory loss without any significant motor deficit Extrem Other: No significant pedal edema Objective Labs Result Diagrams: 10/27/18 11:17 10/31/18 05:00 Labs: Laboratory Results - last 24 hr 10/31/18 05:00 Sodium 138 Potassium 4.0 Chloride 99 Carbon Dioxide 29 BUN 57 H Creatinine 1.50 H Estimated GFR 44.7 L BUN/Creatinine Ratio 38.0 H Glucose 101 Calcium 8.5 Assessment & Plan (1) Non-ST elevation myocardial infarction (NSTEMI): Current visit: Yes Status: Acute (2) Acute combined systolic and diastolic heart failure: Current visit: Yes Status: Acute (3) Moderate aortic stenosis: Current visit: Yes Status: Acute (4) Left bundle branch block: Current visit: Yes Status: Acute (5) Cardiac amyloidosis: Current visit: Yes Status: Acute Plan: Assessment/Plan Narrative: At present patient does not appears to be volume overloaded. Today I did not appreciate obvious JVD or hepatojugular reflux. There appears to be improvement in bilateral pleural effusion as well. As creatinine is increased, consider decreasing dose of Lasix from 60 mg IV to 40 mg with repeat electrolytes. In view of underlying LV dysfunction, congestive heart failure, consider restarting small dose of YUNIOR inhibitor like lisinopril 1.25 mg. Systolic blood pressure 80 or more than 80 except table as long as patient's mentation is preserved. Continue dual anti-platelet therapy and statin. Down the road if blood pressure permits consider small dose of beta-ernesto as well. Discussed with Dr. Rosado. At this point of time cardiology will sign off. 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 Madrigal as an outpatient. Total time spent today for this follow-up at least 35 min with more than 50% time [id number] counseling and coordination of care.
[2018-10-31] MEDS: ATORVASTATIN 20 MG TABLET 40 MG PO (21:19)
--- NOTE | 2018-10-31 21:28 | PC.NURSE ---
Pt continues to deny chest pain. VSS, No lightheadedness. Ambulated around the unit this evening. Currently resting quietly. Able to take po meds without difficulty. Declines snack. Call light in reach.
[2018-11-01] VITALS (14 sets, daily range): BP systolic 99–142; BP diastolic 45–74; PULSE 64–88; RESP 16–20; TEMP 36.3–36.9; O2SAT 88–98
[2018-11-01 05:21] LABS: BUN Creatinine Ratio 37.9 (6-22); Blood Urea Nitrogen 53 mg/dL (9-20); Calcium 8.7 mg/dL (8.4-10.2); Carbon Dioxide 28 mmol/L (22-32); Chloride 100 mmol/L (98-107); Estimated Glomerular Filt Rate 48.4 mL/min (>60); Glucose 88 mg/dL (80-110); HEMOLYSIS < 15 (0-50); Potassium 4.4 mmol/L (3.4-5.1); Sodium 136 mmol/L (137-145)
[2018-11-01 05:38] LABS: Magnesium 1.9 mg/dL (1.6-2.3)
--- NOTE | 2018-11-01 08:22 | P.PN_ITS ---
Subjective Date Patient Seen: 11/01/18 Time Patient Seen: 08:18 Interval history: Patient currently sleeping. Had a good day yesterday. Was able to be up walking around in the ICU area with minimal difficulty of course on oxygen. Did have some recurrent chest pain off and on. Received nitro which seem to be helpful. Was modestly hypotensive requiring some IV fluids prior to giving nitro which seems to be ineffective strategy Exam Vital Signs (past 8 hours): - 11/01/18 00:30 11/01/18 00:34 11/01/18 05:00 Temperature 98.0 F 98.1 F Pulse Rate 71 64 Respiratory Rate 16 16 Blood Pressure 107/58 L 105/58 L Pulse Oximetry 97 96 98 Oxygen Delivery Method Nasal Cannula Oxygen Flow Rate 4 Objective Labs Result Diagrams: 10/27/18 11:17 11/01/18 04:49 Labs: Laboratory Results - last 24 hr 11/01/18 11/01/18 04:49 04:49 Sodium 136 L Potassium 4.4 Chloride 100 Carbon Dioxide 28 BUN 53 H Creatinine 1.40 H Estimated GFR 48.4 L BUN/Creatinine Ratio 37.9 H Glucose 88 Calcium 8.7 Magnesium 1.9 Assessment & Plan Plan: Assessment/Plan Narrative: 1. Congestive heart failure-continue with IV diuresis for now. Creatinine had bumped yesterday as well as BUN but are both improved today. I think her making progress given his increased ability to ambulate etc. His overall oxygen requirement is down from admission but I still think and evaluation for home oxygen is appropriate. Unsure again was really causing his chest pain but will treat that as necessary. His persistent hypotension has made it somewhat difficult to treat with nitro and makes me hesitant to initiate lisinopril today. If however his blood pressure remains as it is now around 105 her so systolic then perhaps a very low-dose lisinopril at 2-1/2 mg would be appropriate. I will reassess later today. 2. Coronary artery disease- Patient continues with chest pain difficult to know whether it is truly ischemic related or other source of chest pain. Continue to use his antianginals including his long-acting nitrates, his Ranexa , and morphine as needed including oral morphine as well as the IV morphine. 3. Cognitive dysfunction-patient appears to be a baseline 4. Disposition-patient clearly is going to go home from here. Whether not he needs oxygen is yet to be determined but more likely than not he will need oxygen and I will start that process. Patient's spouse reports he does have a small oxygen concentrator at home that has been primarily purchased but obviously would need more rigorous source of oxygen. Physical therapy does think he can go home and I would initiate home health services. Does not appear to be candidate for hospice at this time although if he continues to decline at home it become readily apparent that would be appropriate in the short term and/or even long-term. Discussed this at length with spouse and she is in agreement. She was pleased to see him up and around in much improved yesterday and does not think hospice is an appropriate referral at this time but certainly open to it should he have further difficulty or further decline etc 5. DVT prophylaxis-Lovenox will be continued Note: Greater than 30 minutes was spent evaluating the patient on the floor, including examining the patient, discussing clinical course with clinical and nursing staff, reviewing clinical course in the computer, preparing documentation and writing orders for continued management of care, discussing status with family as appropriate, reviewing plans for the next 24 hours with both patient/family and nursing staff as appropriate.
[2018-11-01] MEDS: ASPIRIN EC 81 MG TABLET PO (10:23)
[2018-11-01] MEDS: ISOSORBIDE MONONITRATE ER 60 MG PO (10:24)
[2018-11-01] MEDS: FUROSEMIDE 100 MG/10 ML VIAL 60 MG IV (10:24)
[2018-11-01] MEDS: CITALOPRAM 20 MG TABLET PO (10:24)
[2018-11-01] MEDS: CLOPIDOGREL 75 MG TABLET PO (10:24)
[2018-11-01] MEDS: ENOXAPARIN 40 MG/0.4 ML SYRINGE SUBCUT (10:24)
[2018-11-01] MEDS: RANOLAZINE 500 MG TAB.ER.12H PO ×2 (10:24→21:59)
[2018-11-01] MEDS: SODIUM CHLORIDE 0.9% FLUSH 10 ML IV ×2 (10:25→21:59)
[2018-11-01] MEDS: NITROGLYCERIN 0.4 MG SL TAB SL (11:13)
--- NOTE | 2018-11-01 13:18 | PT.IPTN ---
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 and stage 1 through stage 4 chronic kidney disease, or unspecified chronic kidney disease (10/27/18) Non-ST elevation (NSTEMI) myocardial infarction (10/27/18) Nonrheumatic aortic (valve) stenosis (10/27/18) Cardiomyopathy in diseases classified elsewhere (10/27/18) Left bundle-branch block, unspecified (10/27/18) Acute combined systolic (congestive) and diastolic (congestive) heart failure (10/27/18) Physical Therapy Treatment Note M2 PT-IP Current Condition Start: 10/31/18 11:27 Freq: NEEDED Status: Active Protocol: Document 10/31/18 10:45 HH (Rec: 10/31/18 12:00 HH [email or web address]) Physical Therapy Current Condition Current Condition Evaluation Date 10/31/18 Treatment Diagnosis Acute respiratory failure due to CHF, difficulty in walking, muscle weaknes Onset Date 10/27/18 Precautions Other Precautions Constant monitoring for BP, HR and chest pain. M3 PT-IP Subjective Start: 10/31/18 11:27 Freq: NEEDED Status: Active Protocol: Document 11/01/18 09:45 HH (Rec: 11/01/18 13:18 [email or web address]) Subjective Physical Therapy Visit Type Type Treatment Note Visit Start Time 09:45 Visit Stop Time 10:30 Total Visit Minutes 45 Notes Pt agreeable to mobilize with PT. Pt denies of chest pain since yesterday. Pt and RN report pt amb out of his room once yesterday and went to bathroom as needed with SBA 1 person. Number of LATHE MECHANIC Visits 0 Physical Therapy Visit Comments Patient Comments Pt states I feel great and stronger today. Pt's reports Pt will be d/c to home tomorrow. Therapy Pain Assessment Pain When Pain Assessed After Treatment Pain Present Pain Present Pain Reported Location Chest Intensity 1 Scale Used Numeric (1 - 10) Description Dull M4 PT-IP Mobility and Gait Start: 10/31/18 11:27 Freq: NEEDED Status: Active Protocol: Document 11/01/18 09:45 HH (Rec: 11/01/18 13:18 [email or web address]) PT-Transfer Assessment Sit to and From Stand Sit to and from Stand Independent Standby Assistance Equipment Transfer Assistive Device Front Wheeled Walker Transfers Transfer Destination Bed Chair Toilet Transfer Technique Stand Step Pivot Transfer Ability Level of Assist Independent Standby Assistance Comments Mobility Comments sitting BP 117/59 HR 79 post transfer 117/54 HR 83 post amb BP 128/54 HR 96 Pt performs toilet transfer with FWW, chair transfer with FWW x 4 under supervision without signs of distress and LOB. Pt is able to maintain stable BP during transfer activities. Pt also performs sit to stand from chair x 5 with FWW for 18 s. Pt did not c/o fatigue or chest pain. Gait Assessment Gait Gait Assistance Required: Independent Standby Assistance Distance (Feet) 200 Assistive Devices Assistive Device None 4 Wheeled Walker Gait Deviations General Gait Pattern Within Normal Limits Comments Gait Comments pt amb 100 feet with FWW under supervision and 100 feet without AD follwed by portable O2 tank 4L. Pt demonstrates WFL gait pattern without signs of LOB and acute distress. Pt is able to maintain conversation during gait training. However, pt c/o chest pain 1/10 and slight fatigue for the last 20 feet of gait training. Pt is then transferred back to chair for rest. Communicated with DAVID Roldan. PT-Balance Assessment Sitting Balance and Reactions Static Sitting Balance Ability Normal Dynamic Sitting Balance Ability Normal Standing Balance and Reactions Static Standing Balance Ability Normal Dynamic Standing Balance Ability Normal Functional Assessments Functional Tests 5 Times Sit to Stand 18 s M5 PT-IP Objective Assessments Start: 10/31/18 11:27 Freq: NEEDED Status: Active Protocol: Document 10/31/18 10:45 HH (Rec: 10/31/18 12:00 [email or web address]) Orientation Orientation/Cognition Level of Alertness Alert Orientation Name Age Birthday Month Date Year Day of Week Place Situation Gross Range of Motion Upper Extremity ROM Assessment Within Functional Limits Lower Extremity ROM Assessment Within Functional Limits Strength Upper Extremity Strength Assessment Within Functional Limits Lower Extremity Strength Assessment Within Functional Limits Coordination Assessment Gross Coordination Gross Coordination WNL Sensation Assessment Sensation Gross Sensation WNL M6 PT-IP Treatment Start: 10/31/18 11:27 Freq: NEEDED Status: Active Protocol: Document 11/01/18 09:45 HH (Rec: 11/01/18 13:18 [email or web address]) Physical Therapy Treatment Other Treatments Other Treatment Performed Pt education on therex on bedside: sit to stand , marching in place with FWW M7 PT-IP Assessment and Plan Start: 10/31/18 11:27 Freq: NEEDED Status: Active Protocol: Document 11/01/18 09:45 (Rec: 11/01/18 13:18 [email or web address]) PT Summary Assessment and Plan Potential Rehabilitation Potential Excellent Status of Condition at Evaluation Stable Summary Impairments Strength Activity Tolerance Progress Towards Goals Progressing Toward Goals Assessment Summary Pt denies chest pain since yesterday and has been mobilized out of his room and to his bathroom. Pt is able to maintain safe range for BP and HR during tx session today . Pt's expects pt will be d/c to home tomorrow and requested home health therapy to cont improve's pt overall functional strength , mobility and cardiovascular endurance. Pt demonstrates safe transfer , increased ambulation distance with and without AD without signs of acute distress and LOB. Recommend home health PT or outpatient PT to further address her activity tolerance and overall strength. Goals Bed Mobility Goal Independent Transfer Goal Independent Gait Goal Independent Gait Distance 300 Days to Meet Goals 1 Frequency of Treatment Frequency Of Treatment Once a Day Treatment Plan Physical Therapy Treatment Plan Transfer Training Gait Training Therapeutic Exercise Recommendations To Nursing Amount of Assist Needed Independent Standby Assistance 1 Person Assist Discharge Recommendations PT Discharge Recommendations Home Home Health Outpatient PT
[2018-11-01] MEDS: ATORVASTATIN 20 MG TABLET 40 MG PO (21:59)
[2018-11-02] VITALS (7 sets, daily range): BP systolic 101–128; BP diastolic 53–63; PULSE 66–85; RESP 16–18; TEMP 36.7; O2SAT 97–99
[2018-11-02] MEDS: NITROGLYCERIN 0.4 MG SL TAB SL ×4 (00:33→09:55)
--- NOTE | 2018-11-02 05:02 | PC.NURSE ---
Addendum entered by Jakc Jauregui R.N. 11/02/18 05:07: 0345: Pt awake, having chest pain. 1 SL Nitro tab given. Pt had pain relief within 4 minutes following med. Original Note: Cane Packer Note: 0215: Transferred from ICU floor bed to room 214 in acute care, via wheelchair. Pt is alert, oriented X3. He denies chest pain or pressure. He is in a good humor and conversational. O2 remains on at 3L/NC.
[2018-11-02 06:22] LABS: Blood Urea Nitrogen 49 mg/dL (9-20); Calcium 9.1 mg/dL (8.4-10.2); Carbon Dioxide 30 mmol/L (22-32); Chloride 101 mmol/L (98-107); Estimated Glomerular Filt Rate 48.4 mL/min (>60); Glucose 101 mg/dL (80-110); HEMOLYSIS < 15 (0-50); Potassium 4.7 mmol/L (3.4-5.1); Sodium 138 mmol/L (137-145)
--- NOTE | 2018-11-02 08:30 | PM.DS.1 ---
History of Present Illness Chief complaint: HEART PAIN Narrative: 83-year-old male presented to the [facility] Emergency Department on October 27 with symptoms of persistent ongoing but intermittent chest pain. Patient had symptoms for several days. Not really responding to his usual nitroglycerin sublingual at home. Also increasingly weak and felt like his breathing was not quite right. In the ER he was evaluated to felt to have acute on chronic diastolic base congestive heart failure with elevated BNP and hypoxia, increased right pleural effusion on top of stable left pleural effusion, ECG with left bundle branch block and first-degree AV block which is baseline, elevated troponin above his usual baseline Patient's past history from a cardiac standpoint is really quite complex. He has known coronary artery disease status post bypass surgery, with stent in place in the circumflex but also has significant cardiac and pulmonary amyloidosis causing ischemia because of infiltrative affects as well as diastolic dysfunction because of its restrictive effect on the cardiac muscle.. Most recent echo shows normal left ventricular ejection fraction but patient also has moderate to severe aortic stenosis with moderate mitral stenosis and moderate aortic regurgitation. Patient was quite ill from a cardiac standpoint earlier in the year with persistent ongoing chest pain with any activity and even some pain at rest. He has responded to nitrates in various forms as well as Ranexa. 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 He was ill enough that he was placed on hospice earlier in the year but with appropriate and aggressive medical management mostly via Cardiology he improved enough that he voluntarily came off of hospice and has been doing well for the last several months. Cardiology was consulted by the ER physician. Would certainly be appropriate to admit patient to a facility where cardiology consultation is available but there were no beds available at [facility] where his bright cutter and that group have privileges. They are not available to us over the weekend here at [facility]. However given patient's end-stage nature of his disease was not felt as though is really candidate for any interventions. It was felt as though continued medical management with treatment of his acute congestive heart failure would certainly be appropriate initial treatment options. Therefore I somewhat reluctantly agreed to admit the patient to [facility] despite the fact we do not have cardiology coverage in person here. Discharge Providers Date of admission: 10/27/18 13:46 Primary care physician: Navneet Blanco MD Consults: 10/28/18 02:50 Consult to Respiratory Therapy Evaluate & Treat Comment: Physician Instructions: Evaluate and treat 10/28/18 04:55 Consult to Respiratory Therapy Evaluate & Treat Comment: Physician Instructions: Evaluate and treat 10/29/18 07:40 Consult to Physician Routine Comment: Consulting Provider: Ilan Perez Reason for consultation: Heart Failure Has provider been notified: Yes 10/31/18 07:38 Consult to Physical Therapy Evaluate & Treat Comment: eval prior to discharge home, limited abilities Physician Instructions: Evaluate and Treat Discharge provider: Navneet Blanco MD Discharge Date: 11/02/18 Summary Discharge Diagnosis: 1. acute non ST elevation [place] 2. 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 Acute on chronic diastolic congestive heart failure 4. Acute systolic base congestive heart failure 5. 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 memory loss/ cognitive dysfunction 9. moderate aortic valve stenosis 10. history of pulmonary embolism 11. Acute respiratory failure upon admission, resolved Hospital Course: patient was admitted by the ER because of his respiratory failure. This was felt to be likely congestive heart failure. He was treated with diuretic therapy as well as oxygen which seem to improve his overall status. Echocardiography was performed which showed new left ventricular dysfunction without focal abnormality suggesting a global process. Patient with known cardiac amyloidosis. Patient's troponin was also followed and this luci quite precipitously peaking at just over 8. cardiology was consulted via telephone and when available in person. Was felt as though more likely than not patient had sustained a non ST elevation myocardial infarction likely related to a problematic stent that is within his circumflex artery. However was not clear whether not this was connected to his new left ventricular dysfunction. Given the left ventricular dysfunction amlodipine was discontinued. Diuretic therapy was continued. Lisinopril was given but seem to produce excessive hypotension and was discontinued after 1 dose. Patient persisted with symptoms of chest pain. EKG remained left bundle branch block was therefore not helpful. No further troponin elevation was identified. It is felt as though his chest pain was possibly ischemic but perhaps other cardiac source is. His chest pain was treated with IV morphine sublingual nitroglycerin and oral morphine. Cardiology did not feel he was a candidate for any invasive interventions whatsoever given the complex nature of his known anatomy as well as his underlying issues with his amyloidosis etc After several days of ongoing IV diuresis patient's respiratory function and his overall weakness and ability to walk were much improved. Initially thoughts of re-engage in him with hospice were entertain but given his improvement that was not done prior to discharge. He will go home and his course over the next several weeks will dictate whether not hospice would be an appropriate next step or whether he will be able to continue with current medication management for his severe multifactorial cardiac disease Status at Discharge Cognitive/behavioral status at discharge: Back to baseline, mild cognitive dysfunction Functional status at discharge: uses cane/walker Overall status at discharge: patient is progressing back to baseline Time Spent with Patient Greater than 30 minutes Exam Vital Signs (past 8 hours): - 11/02/18 00:33 11/02/18 02:58 11/02/18 03:45 Temperature 98.0 F Pulse Rate 66 69 85 Respiratory Rate 18 Blood Pressure 122/60 108/63 116/63 Pulse Oximetry 99 Oxygen Delivery Method Nasal Cannula Oxygen Flow Rate 3 Narrative Exam Narrative: HEENT-unremarkable, normocephalic atraumatic Neck-no lymphadenopathy no bruits Lungs-clear anteriorly and posteriorly no wheezes no crackles diminished breath sounds Heart-regular rate and rhythm no murmur rub or gallop normal S1-S2 Abdomen-positive bowel tones soft nontender nondistended no hepatosplenomegaly no masses palpable Neuro-normal to screening exam, gait not tested Extremities-no cyanosis clubbing or edema Objective Labs Result Diagrams: 10/27/18 11:17 11/02/18 05:49 Labs: Laboratory Results - last 24 hr 11/02/18 05:49 Sodium 138 Potassium 4.7 Chloride 101 Carbon Dioxide 30 BUN 49 H Creatinine 1.40 H Estimated GFR 48.4 L BUN/Creatinine Ratio 35.0 H Glucose 101 Calcium 9.1 Magnesium 2.0 Discharge Plan Discharge Plan Patient Disposition: Home Health Service Transfer to: Home Health, Other Discharge Med Rec/Prescriptions Prescriptions: New clopidogrel [Plavix] 75 mg Tablet 75 mg PO DAILY Qty: 30 RF: 5 morphine 15 mg Tablet 15 mg PO Q4HR PRN (Reason: Chest Pain) Qty: 30 RF: 0 atorvastatin 40 mg tablet 40 mg PO DAILY Qty: 30 RF: 5 furosemide 20 mg tablet 40 mg PO DAILY Qty: 180 RF: 5 lisinopril 2.5 mg tablet 2.5 mg PO DAILY Qty: 30 RF: 6 Continue aspirin 81 mg Tablet,Delayed Release (Dr/Ec) 81 mg PO QDAY Qty: 0 RF: 0 famotidine 20 MG tablet 20 mg PO QPM Qty: 0 RF: 0 isosorbide mononitrate 60 mg tablet extended release 24 hr 60 mg PO QAM Qty: 90 RF: 0 citalopram 20 mg tablet 20 mg PO QDAY Qty: 90 RF: 3 morphine concentrate 100 mg/5 mL (20 mg/mL) solution 0.25 ml PO Q1H PRN (Reason: Pain, Severe) RF: 0 ranolazine [Ranexa] 500 mg Tablet Extended Release 12 Hr 500 mg PO BID RF: 0 sennosides [senna] 8.6 mg Tablet 1 tab PO DAILY PRN (Reason: Constipation) RF: 0 nitroglycerin [Nitrostat] 0.4 MG tablet, sublingual 0.4 mg Sublingual PRN PRN (Reason: Chest Pain) RF: 0 Discontinued amlodipine 5 mg tablet 5 mg PO QPM RF: 0 Follow up/Referrals: Navneet Blanco MD [Primary Care Provider] - 3-5 Days (appt:11/06 @ 3:00 (check in @ 2:45) for appointment w/dr blanco [phone]-please ask dr blanco at this appointment to give referal to dr perez for appointment scheduled 12/20 ) Ilan Perez MD [Physician] - 1 Month (*appt:12/20 @ 2:10 appt (check in at 1:55) [place] office with dr perez [phone]) Provider Discharge Instructions Diet: Low-sodium Oxygen: 2 l/min rest, 4 l/min activity/portable Visit Report/Discharge Packet Instructions: DI for Heart Attack, DI for Heart Failure, Atorvastatin, Clopidogrel, Morphine, Furosemide, Lisinopril Visit Report Forms: Congestive Heart Failure, Stroke Signs & Symptoms Discharge Data Primary Care Provider: Navneet Blanco Attending Provider: Navneet Blanco Admit Date/Time: 10/27/18 13:46 Discharges patient from system. Discharge Date/Time: 11/02/18 14:55
[2018-11-02] MEDS: CITALOPRAM 20 MG TABLET PO (09:12)
[2018-11-02] MEDS: CLOPIDOGREL 75 MG TABLET PO (09:12)
[2018-11-02] MEDS: ASPIRIN EC 81 MG TABLET PO (09:12)
[2018-11-02] MEDS: ISOSORBIDE MONONITRATE ER 60 MG PO (09:13)
[2018-11-02] MEDS: RANOLAZINE 500 MG TAB.ER.12H PO (09:13)
[2018-11-02] MEDS: ENOXAPARIN 40 MG/0.4 ML SYRINGE SUBCUT (09:33)
[2018-11-02] MEDS: FUROSEMIDE 100 MG/10 ML VIAL 60 MG IV (09:34)
--- NOTE | 2018-11-02 09:38 | PC.NURSE ---
Addendum entered by Ivy Rice R.N. 11/02/18 14:54: dc - has clothing, 02 and phone sales floor team leader. Original Note: Addendum entered by Ivy Rice R.N. 11/02/18 14:41: DC - after pt rested, reviewed dc instructions with pt and spouse, the scripts were picked up by spouse, has 02 tank, HH arrangements discussed with Bonnie, hep lock dc'd, tsf to and escorted to family car by field marketing lead. Original Note: Addendum entered by Ivy Rice R.N. 11/02/18 13:08: RESP/DC - when spouse returned, given script for morphine, other meds sent escript to family pharmacy, she will take down down and have meds prior to dc. RT in and 02 tank ready and info provided to spouse who will call [facility] when home, pt not experiencing any chest pain at this time would like to rest as currently feels exhausted, plan to dc later this afternoon. Original Note: Addendum entered by Ivy Rice R.N. 11/02/18 11:54: PAIN/MS/RESP - RT in and pt qualifies for home 02, form completed by RT, signed and faxed to [facility], pt rested after earlier morphine dose and then assisted into BR, voided and phys therapy noted who came in to eval and mobilized in room, then to chair, no complaint chest pain at this time. Original Note: Addendum entered by Ivy Rice R.N. 11/02/18 10:38: CHEST PAIN/RESP - pt again reported chest discomfort at 6 on scale 0/10, given a dose 0.4mg SL nitro and pt pain decr to 1 on scale 0/10, contacted to report x2 episodes and no new orders rec'd, no further testing, spoke to pt and spouse and due to repeat of the chest pain, given also 15mg IR morphine, RT in to eval pt resp status, discussed w/PT to coordinate their mobilization with any RT ambulation. Original Note: AM NOTE - pt awakens easily, 3l 98%, no chest pain or nausea, decr 02 to 2l and sat maintained 93-95%, hr 62 w/murmur, bs coarse, clear, repositioned upright for breakfast and ate slowly, mid meal complaint onset chest discomfort 5-6 on scale 0/10, given 0.4mg nitro SL, hr 80, within 4 minutes resumed eating and stated chest discomfort resolving, declines any morphine at this time. RT in and discussed eval and will be in later am when pt finishes meal, spouse now at bedside.
[2018-11-02] MEDS: SODIUM CHLORIDE 0.9% FLUSH 10 ML IV (10:13)
[2018-11-02] MEDS: MORPHINE 15 MG IR TABLET PO (10:21)
--- NOTE | 2018-11-02 12:04 | PT.IPTN ---
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 and stage 1 through stage 4 chronic kidney disease, or unspecified chronic kidney disease (10/27/18) Non-ST elevation (NSTEMI) myocardial infarction (10/27/18) Nonrheumatic aortic (valve) stenosis (10/27/18) Cardiomyopathy in diseases classified elsewhere (10/27/18) Left bundle-branch block, unspecified (10/27/18) Acute combined systolic (congestive) and diastolic (congestive) heart failure (10/27/18) Physical Therapy Treatment Note M2 PT-IP Current Condition Start: 10/31/18 11:27 Freq: NEEDED Status: Active Protocol: Document 10/31/18 10:45 HH (Rec: 10/31/18 12:00 HH [email or web address]) Physical Therapy Current Condition Current Condition Evaluation Date 10/31/18 Treatment Diagnosis Acute respiratory failure due to CHF, difficulty in walking, muscle weaknes Onset Date 10/27/18 Precautions Other Precautions Constant monitoring for BP, HR and chest pain. M3 PT-IP Subjective Start: 10/31/18 11:27 Freq: NEEDED Status: Active Protocol: Document 11/02/18 11:25 CLB (Rec: 11/02/18 12:04 CLB [id number]) Subjective Physical Therapy Visit Type Type Treatment Note Visit Start Time 11:25 Visit Stop Time 11:50 Total Visit Minutes 25 Number of [facility] Visits 1 Physical Therapy Visit Comments Patient Comments Pt agreeable to ambulate. Therapy Pain Assessment Pain When Pain Assessed During Mobility Pain Present Pain Present Denied Pain M4 PT-IP Mobility and Gait Start: 10/31/18 11:27 Freq: NEEDED Status: Active Protocol: Document 11/02/18 11:25 CLB (Rec: 11/02/18 12:04 CLB [id number]) PT-Transfer Assessment Sit to and From Stand Sit to and from Stand Independent Standby Assistance Equipment Transfer Assistive Device Gait Belt Front Wheeled Walker Transfers Transfer Destination Bed Chair Transfer Technique Stand Step Pivot Transfer Ability Level of Assist Independent Standby Assistance Comments Mobility Comments Pt up with RN upon arrival. Gait Assessment Gait Gait Assistance Required: Independent Standby Assistance Distance (Feet) 75 Assistive Devices Assistive Device Front Wheeled Walker Gait Deviations General Gait Pattern Flexed Trunk Factors Limiting Gait Function Factors Limiting Gait Function Decreased Activity Tolerance Decreased Strength Comments Gait Comments RN recommended pt ambulate in room this morning. Pt ambulated on 2L O2 with O2 sats ranging from 96-98% with mobility. HR 75-79 bpm. M5 PT-IP Objective Assessments Start: 10/31/18 11:27 Freq: NEEDED Status: Active Protocol: Document 10/31/18 10:45 HH (Rec: 10/31/18 12:00 HH [email or web address]) Orientation Orientation/Cognition Level of Alertness Alert Orientation Name Age Birthday Month Date Year Day of Week Place Situation Gross Range of Motion Upper Extremity ROM Assessment Within Functional Limits Lower Extremity ROM Assessment Within Functional Limits Strength Upper Extremity Strength Assessment Within Functional Limits Lower Extremity Strength Assessment Within Functional Limits Coordination Assessment Gross Coordination Gross Coordination WNL Sensation Assessment Sensation Gross Sensation WNL M6 PT-IP Treatment Start: 10/31/18 11:27 Freq: NEEDED Status: Active Protocol: Document 11/01/18 09:45 HH (Rec: 11/01/18 13:18 HH [email or web address]) Physical Therapy Treatment Other Treatments Other Treatment Performed Pt education on therex on bedside: sit to stand , marching in place with FWW M7 PT-IP Assessment and Plan Start: 10/31/18 11:27 Freq: NEEDED Status: Active Protocol: Document 11/02/18 11:25 CLB (Rec: 11/02/18 12:04 CLB [id number]) PT Summary Assessment and Plan Potential Rehabilitation Potential Excellent Status of Condition at Evaluation Stable Summary Impairments Strength Activity Tolerance Progress Towards Goals Progressing Toward Goals Assessment Summary Pt denied chest pain but did have chest pain this morning per RN that had resolved. Pt requires SBA for all mobility and gait with good safety awareness of his surrounding. Pt is able to maintain safe range for BP and HR during tx session today on 2L O2.(SEE gait assessment above) Goals Bed Mobility Goal Independent Transfer Goal Independent Gait Goal Independent Gait Distance 300 Days to Meet Goals 3 Frequency of Treatment Frequency Of Treatment Once a Day Treatment Plan Physical Therapy Treatment Plan Transfer Training Gait Training Therapeutic Exercise Recommendations To Nursing Amount of Assist Needed Independent Standby Assistance 1 Person Assist Discharge Recommendations PT Discharge Recommendations Home Home Health Outpatient PT
--- NOTE | 2018-11-02 13:49 | CM.DPC ---
DCP/Discharge Patient to discharge home today with HH. Met with patient: remains agreeable to discharge with HH. Provided with Medicare Choice List and selected 1-[facility] ([facility]) 2-[facility]. CM/Jose Ramon to fax referral. Plan: Patient to discharge home with supportive and HH/RN/PT.
--- NOTE | 2018-11-02 13:52 | CM.DPC ---
Referral faxed to [facility] per Bonnie
== END 2018-11-02 14:55 | disposition home health service (06) | DRG 280 ==
LOC: ED 13:31 → ICU 15:06 → AC 11-02 08:04 → ICU 09-23 14:26
PROVIDERS: Admitting Provider Internal Medicine; Emergency Provider Emergency Medicine; PCP Internal Medicine; Visit Provider Internal Medicine
DX: I13.0 Hypertensive heart and chronic kidney disease with heart failure and stage 1 through stage 4 chronic kidney disease, or unspecified chronic kidney disease (principal); I21.4 Non-ST elevation (NSTEMI) myocardial infarction; I50.21 Acute systolic (congestive) heart failure; J96.01 Acute respiratory failure with hypoxia; I50.33 Acute on chronic diastolic (congestive) heart failure; E85.4 Organ-limited amyloidosis; T82.855A Stenosis of coronary artery stent, initial encounter; J99 Respiratory disorders in diseases classified elsewhere; I43 Cardiomyopathy in diseases classified elsewhere; I25.10 Atherosclerotic heart disease of native coronary artery without angina pectoris; I73.9 Peripheral vascular disease, unspecified; I44.7 Left bundle-branch block, unspecified; Z95.1 Presence of aortocoronary bypass graft; I35.0 Nonrheumatic aortic (valve) stenosis; N18.2 Chronic kidney disease, stage 2 (mild); R41.3 Other amnesia
CPT/HCPCS: 36415; 36591; 71045; 80048; 80053; 81003; 82550; 83690; 83735; 83880; 84484; 85025; 87797; 93005; 93010; 93306; 94618; 94760; 94762; 96374; 97110; 97116; 97162; 97530; 99223; 99233; 99238; 99284; J1650; J1940; J2270

== ENCOUNTER → 2018-11-30 11:52 | Outpatient (CLI) | payer OTHER, SELFPAY ==
[2018-10-27 16:21] VITALS: BMI 22.7
[2018-11-30 12:31] LABS: B Type Natriuretic Peptide 402 (<100)
[2018-11-30 12:40] LABS: BUN Creatinine Ratio 26.9 (6-22); Blood Urea Nitrogen 35 mg/dL (9-20); Calcium 9.3 mg/dL (8.4-10.2); Carbon Dioxide 28 mmol/L (22-32); Chloride 102 mmol/L (98-107); Estimated Glomerular Filt Rate 52.7 mL/min (>60); Glucose 125 mg/dL (80-110); HEMOLYSIS < 15 (0-50); Potassium 4.6 mmol/L (3.4-5.1); Sodium 140 mmol/L (137-145)
== END ==
PROVIDERS: PCP Internal Medicine; Visit Provider Internal Medicine
DX: E85.4 Organ-limited amyloidosis (principal); I43 Cardiomyopathy in diseases classified elsewhere; I50.9 Heart failure, unspecified
CPT/HCPCS: 36415; 80048; 83880

== ENCOUNTER → 2018-12-12 10:27 | Outpatient (CLI) | payer OTHER, SELFPAY ==
[2018-10-27 16:21] VITALS: BMI 22.7
[2018-12-12 11:14] LABS: Alanine Aminotransferase 21 IU/L (21-72); Albumin Globulin Ratio 1.3 (1.0-2.8); Alkaline Phosphatase 122 U/L (38-126); Aspartate Aminotransferase 25 IU/L (17-59); BUN Creatinine Ratio 24.3 (6-22); Bilirubin Total 0.6 mg/dL (0.2-1.3); Blood Urea Nitrogen 34 mg/dL (9-20); Calcium 9.6 mg/dL (8.4-10.2); Carbon Dioxide 30 mmol/L (22-32); Chloride 103 mmol/L (98-107); Cholesterol 123 mg/dL (140-199); Estimated Glomerular Filt Rate 48.4 mL/min (>60); Glucose 100 mg/dL (80-110); HDL Cholesterol 37 mg/dL (40-60); Potassium 5.1 mmol/L (3.4-5.1); Sodium 140 mmol/L (137-145); Triglycerides 97 mg/dL (35-150)
[2018-12-12 11:15] LABS: HEMOLYSIS < 15 (0-50); LDL Cholesterol Calculated 67 mg/dL (<100)
== END ==
PROVIDERS: PCP Internal Medicine; Visit Provider Physician Assistant Medical
DX: R07.9 Chest pain, unspecified (principal)
CPT/HCPCS: 36415; 80053; 80061

== ENCOUNTER 2019-01-24 11:30 | Outpatient (RCR) | payer OTHER, SELFPAY ==
[2018-10-27 16:21] VITALS: BMI 22.7
== END 2019-01-24 14:36 ==
LOC: CAR 11:30
PROVIDERS: PCP Internal Medicine; Visit Provider Internal Medicine
DX: I50.9 Heart failure, unspecified (principal)
CPT/HCPCS: 93798

== ENCOUNTER 2019-01-29 13:17 | Emergency (ER) | payer OTHER, SELFPAY ==
[2018-10-27 16:21] VITALS: BMI 22.7
[2019-01-29 13:25] VITALS: BP 103/68; PULSE 99; RESP 18; TEMP 36.6; O2SAT 86
--- NOTE | 2019-01-29 13:52 | ED.CHESTPAIN ---
HPI - Chest Pain General Chief Complaint: Chest Pain Stated Complaint: chest pain Time Seen by Provider: 01/29/19 13:44 Source: patient Mode of arrival: ambulatory Limitations: no limitations History of Present Illness HPI narrative: Patient is an 84-year-old male presenting with chest pain. He has a complicated medical history as with amyloidosis, CLL, CAD with inferior posterior [place] and CABG in 2008. Aortic stenosis. It sounds as though he has had angina off and on. According to the for the last 3 days as it has been much more frequent. She has been able to control it at home with nitroglycerin and liquid morphine until today when it got much worse. He received 2 nitroglycerin at home and is now chest pain-free in the ED. He was in atrial fibrillation on EKG is however it while on monitor his seems as though he converted. Related Data Home Medications Medication Instructions Recorded Confirmed aspirin 81 mg PO QDAY #0 10/08/12 01/17/19 ranolazine [Ranexa] 500 mg PO BID 04/23/18 01/17/19 sennosides [senna] 1 tab PO DAILY PRN 10/27/18 01/17/19 amlodipine 5 mg tablet 5 mg PO DAILY 01/17/19 01/17/19 Previous Rx's Medication Instructions Recorded citalopram 20 mg tablet 20 mg PO QDAY #90 tab 07/31/18 atorvastatin 40 mg PO DAILY #30 tab 11/02/18 clopidogrel [Plavix] 75 mg PO DAILY #30 tab 11/02/18 furosemide 40 mg PO DAILY #180 tab 11/02/18 morphine 15 mg PO Q4HR PRN #30 tab 11/02/18 isosorbide mononitrate ER 60 mg 60 mg PO QPM #90 tab 11/09/18 tablet,extended release 24 hr nitroglycerin 0.4 mg sublingual 0.4 mg SL Q5-15M PRN #50 tab 11/30/18 tablet Allergies Allergy/AdvReac Type Severity Reaction Status Date / Time No Known Drug Allergies Allergy Unknown Verified 01/17/19 10:41 [NO KNOWN DRUG ALLERGIES] abalone Allergy Mild pt reports Uncoded 01/17/19 10:41 vomiting/GI distress Review of Systems Review of Systems GENERAL: Denies chills, fatigue, malaise, fever, sweats, travel HEENT: Denies sinus pain, ear pain, sore throat, difficulty swallowing, neck pain RESPIRATORY: Denies dyspnea, cough, wheezing, hemoptysis, sputum. CARDIOVASCULAR: See HPI GASTROINTESTINAL: Denies nausea, vomiting, abdominal pain, diarrhea, constipation, melena. : Denies dysuria, frequency, incontinence, hematuria, urinary retention, flank pain. MUSCULOSKELETAL: Denies weakness, joint pain, or bony pain SKIN: No rash, no erythema, no pruritus NEUROLOGIC: Denies weakness, dizziness, headache, numbness, change in speech, confusion PSYCHIATRIC: No concerning psychosocial issues. 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) Spinal stenosis, site unspecified (Chronic 06/22/11) History of pulmonary embolism (Chronic) Chronic rhinitis (Chronic) Nephrotic syndrome with unspecified morphologic changes (Chronic 06/22/11) Memory loss (Chronic) BPH w urinary obs/LUTS (Chronic 06/22/11) CHF (congestive heart failure) (Chronic) Cardiac amyloidosis (Chronic) Chronic renal failure, stage 2 (mild) (Chronic) 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) Gastroesophageal reflux disease without esophagitis (Chronic 09/02/15) Nonrheumatic aortic valve stenosis (Chronic 02/15/17) LBBB (left bundle branch block) (Chronic) Chronic back pain (Chronic) Neuropathy (Chronic) Osteoarthritis (Chronic) Actinic keratosis (Resolved) Fractures (Resolved 2009) Plantar warts (Resolved) Surgical History S/P IVC filter (Chronic) History of angioplasty (Resolved) History of lumbosacral spine surgery (Resolved 2007) History of vasectomy (Resolved 1990) S/P coronary artery stent placement (Resolved 11/2016) Status post coronary artery bypass graft (Resolved 2008) Social History marital status: number of children: 3 household members: spouse and other lives independently: Yes caregiver/support person: No housing: house pets and animals: Yes education level: other (College + some graduate schooling.) occupational status: other (Retired) Previous occupational history: [employer] travel history: recent ([place]) leisure activities: exercise (Walking), music and reading Smoking Status: Never smoker Tobacco: How many years used: 0 quit status: quit date established (Never Started) second hand exposure: No alcohol intake: current substance use type: does not use Social History marital status: number of children: 3 household members: spouse and other lives independently: Yes caregiver/support person: No housing: house pets and animals: Yes education level: other (College + some graduate schooling.) occupational status: other (Retired) Previous occupational history: [employer] travel history: recent ([place]) leisure activities: exercise (Walking), music and reading Smoking Status: Never smoker Tobacco: How many years used: 0 quit status: quit date established (Never Started) second hand exposure: No alcohol intake: current substance use type: does not use Exam Initial Vital Signs Initial Vital Signs: Vital Signs Temperature 97.8 F 01/29/19 13:25 Pulse Rate 99 H 01/29/19 13:25 Respiratory Rate 18 01/29/19 13:25 Blood Pressure 103/68 01/29/19 13:25 Pulse Oximetry 86 L 01/29/19 13:25 Gen.: Alert pleasant elderly male no acute distress HEENT: Head is atraumatic EOMI Neck: Neck is supple no JVD Lungs: Clear bilaterally no wheezes rales or rhonchi Cardiac: Regular rate and rhythm no murmur Abdomen: Soft nontender nondistended no guarding or rebound Extremities: No deformity no edema in his lower extremities peripheral pulses intact Neurologic: Alert oriented no gross deficits Course Orders Ordered: ED Orders 01/29/19 13:50 Complete Blood Count AUTO DIFF Stat Comprehensive Metabolic Panel Stat Lipase Stat Partial Thromboplastin Time Stat Prothrombin Time INR Stat Troponin & CK Cardiac Panel Stat 01/29/19 14:07 XR chest 1V Stat EKG-12 Lead Stat Vital Signs - 8 hr 01/29/19 13:25 Temperature 97.8 F Pulse Rate 99 H Respiratory Rate 18 Blood Pressure 103/68 Pulse Oximetry 86 L MDM - Chest Pain Lab Data Attestation: I reviewed the patient's lab results. Result diagrams: 01/29/19 13:50 01/29/19 13:50 Lab Results 01/29/19 01/29/19 01/29/19 Range/Units 13:50 13:50 13:50 WBC 7.8 (4.5-11.0) X10^3/uL RBC 3.89 L (4.5-5.9) X10^6/uL Hgb 12.8 L (13.5-17.5) g/dL Hct 37.8 L (41-53) % MCV 97.2 (80-100) fL MCH 33.0 (26-34) PG MCHC 34.0 (30-36) % RDW 13.8 (11.6-14.8) % Plt Count 181 (150-400) X10^3/uL Neut % (Auto) 81.5 H (50-75) % Lymph % (Auto) 8.5 L (25-40) % Austin % (Auto) 9.0 (3-14) % Eos % (Auto) 0.6 L (2-4) % Baso % (Auto) 0.4 (0-2) % Neut # (Auto) 6300 (6961-9718) /uL Lymph # (Auto) 700 L (9057-5635) /uL Austin # (Auto) 700 (0-900) /uL Eos # (Auto) 0 (0-450) /uL Baso # (Auto) 0 (0-100) /uL PT 13.5 H (10.1-12.7) SECONDS INR 1.2 (0.9-1.3) APTT 26 L (26.4-36.2) SECONDS Sodium 137 (137-145) mmol/L Potassium 3.9 (3.4-5.1) mmol/L Chloride 97 L (98-107) mmol/L Carbon Dioxide 27 (22-32) mmol/L BUN 53 H (9-20) mg/dL Creatinine 1.60 H (0.66-1.25) mg/dL Estimated GFR 41.4 L (>60) mL/min BUN/Creatinine Ratio 33.1 H (6-22) Glucose 111 H (80-110) mg/dL Calcium 9.1 (8.4-10.2) mg/dL Total Bilirubin 1.5 H (0.2-1.3) mg/dL AST 36 (17-59) IU/L ALT 31 (21-72) IU/L Alkaline Phosphatase 132 H (38-126) U/L Total Creatine Kinase 76 (55-170) U/L CK-MB (CK-2) TNP CK-MB (CK-2) Rel Index TNP Troponin I 1.800 H* (0.01-0.034) ng/mL Total Protein 7.3 (6.3-8.2) g/dL Albumin 4.2 (3.5-5.0) g/dL Globulin 3.1 (1.7-4.1) g/dL Albumin/Globulin Ratio 1.4 (1.0-2.8) Lipase 48 (23-300) U/L Imaging Data Chest x-ray: Radiologist's impression: PROCEDURE: XR CHEST 1V INDICATIONS: chest pain TECHNIQUE: One view of the chest was acquired. COMPARISON: [facility], CR, XR CHEST 1V, 10/30/2018, 8:55. [facility], , XR CHEST 1V, 10/27/2018, 11:20. FINDINGS: Surgical changes and devices: None. Lungs and pleura: Moderate left basilar airspace opacity. Small left pleural effusion. No pneumothorax. Mediastinum: Mediastinal contours appear normal. Heart size is normal. Bones and chest wall: No suspicious bony lesions. Overlying soft tissues appear unremarkable. IMPRESSION: Left lower lobe pneumonia with small parapneumonic effusion. Continued plain film surveillance is recommended to ensure resolution, and to exclude underlying or central malignancy. Dictated by: Rom Benito M.D. on 01/29/2019 at 14:49 ECG Data Attestation: I personally reviewed and interpreted this ECG as follows: Prior ECG tracings: available for review Interpretation: EKG atrial fibrillation rate 94 no P waves appreciated similar to previous EKG MDM Narrative Medical decision making narrative: Patient's troponin is positive. Is actually lower than what it was previously in October. Patient is no longer having chest pain appears comfortable. states that he has been complaining of chest pain all week until he got to the emergency department. Dr. Perez acute care physician consult in regards to positive troponin. His patient is no longer having chest pain in the ED. He states that family has often refused any sort of intervention. He was previously on hospice. At this time as he recommends returning to hospice. He thinks positive troponins are from microvascular disease and amyloidosis. Dr. Rosado patient's PCP has been updated. His he agrees with hospice and will help family with that. Patient is noted to be slightly hypoxic. states that they have an oxygen concentrator at home. If patient sits up and concentrates on breathing his O2 goes up to 91%. While lying down sleeping it is in the 80s. Both patient and family feel comfortable and wanting to go home. They understand the events have occurred. will be calling Hospice soon as they get home. Discharge Plan Departure Patient Disposition: Home Clinical Impression: Angina at rest, Cardiomyopathy Discharge Date/Time: 01/29/19 16:30 Interventions: ED Discharge Assessment Last Done: 01/29/19 16:29 Instructions: DI for Acute Coronary Syndrome, DI for Angina Activity Restrictions/Additional Instructions: *You have been diagnosed with angina with positive troponin myocardial infarction *What to do: I have spoken with Dr. Rosado and Dr. Perez. Dr. Rosado will call hospice. *Continue to take medications as directed Increase Ranexa to 1000 mg twice a day *Follow up with your primary care provider in 2-3 days *Return to ER if you should have or any new, worsening or concerning symptoms Prescriptions: No Action aspirin 81 mg Tablet,Delayed Release (Dr/Ec) 81 mg PO QDAY Qty: 0 RF: 0 citalopram 20 mg tablet 20 mg PO QDAY Qty: 90 RF: 3 isosorbide mononitrate 60 mg tablet extended release 24 hr 60 mg PO QPM Qty: 90 RF: 0 amlodipine 5 mg tablet 5 mg PO DAILY RF: 0 nitroglycerin [Nitrostat] 0.4 mg tablet, sublingual 0.4 mg SL Q5-15M PRN (Reason: chest pain) Qty: 50 RF: 8 ranolazine [Ranexa] 500 mg Tablet Extended Release 12 Hr 500 mg PO BID RF: 0 sennosides [senna] 8.6 mg Tablet 1 tab PO DAILY PRN (Reason: Constipation) RF: 0 clopidogrel [Plavix] 75 mg Tablet 75 mg PO DAILY Qty: 30 RF: 5 morphine 15 mg Tablet 15 mg PO Q4HR PRN (Reason: Chest Pain) Qty: 30 RF: 0 atorvastatin 40 mg tablet 40 mg PO DAILY Qty: 30 RF: 5 furosemide 20 mg tablet 40 mg PO DAILY Qty: 180 RF: 5 Referrals: Navneet Rosado MD [Primary Care Provider] -
[2019-01-29 14:00] VITALS: BP 98/57; PULSE 76; RESP 15; O2SAT 94
--- NOTE | 2019-01-29 14:07 | DI.RAD.S_ITS ---
PROCEDURE: XR CHEST 1V INDICATIONS: chest pain TECHNIQUE: One view of the chest was acquired. COMPARISON: [facility], CR, XR CHEST 1V, 10/30/2018, 8:55. [facility], CR, XR CHEST 1V, 10/27/2018, 11:20. FINDINGS: Surgical changes and devices: None. Lungs and pleura: Moderate left basilar airspace opacity. Small left pleural effusion. No pneumothorax. Mediastinum: Mediastinal contours appear normal. Heart size is normal. Bones and chest wall: No suspicious bony lesions. Overlying soft tissues appear unremarkable. IMPRESSION: Left lower lobe pneumonia with small parapneumonic effusion. Continued plain film surveillance is recommended to ensure resolution, and to exclude underlying or central malignancy. Dictated by: Rom Benito M.D. on 01/29/2019 at 14:49 Approved by: Rom Benito M.D. on 01/29/2019 at 14:50
[2019-01-29 14:12] LABS: Add Manual Diff / Slide Review NO; Basophils Absolute Auto 0 /uL (0-100); Basophils Percent Auto 0.4 % (0-2); Eosinophils Absolute Auto 0 /uL (0-450); Eosinophils Percent Auto 0.6 % (2-4); Hematocrit 37.8 % (41-53); Hemoglobin 12.8 g/dL (13.5-17.5); Lymphocytes Absolute Auto 700 /uL (1100-4500); Lymphocytes Percent Auto 8.5 % (25-40); Mean Corpuscular Volume 97.2 fL (80-100); Monocytes Absolute Auto 700 /uL (0-900); Neutrophils Absolute Auto 6300 /uL (1500-7000); Neutrophils Percent Auto 81.5 % (50-75); Platelet Count 181 X10^3/uL (150-400); Red Blood Cell Count 3.89 X10^6/uL (4.5-5.9); Red Cell Distribution Width 13.8 % (11.6-14.8); White Blood Cell Count 7.8 X10^3/uL (4.5-11.0)
[2019-01-29 14:14] LABS: INR 1.2 (0.9-1.3); Prothrombin Time 13.5 SECONDS (10.1-12.7)
--- NOTE | 2019-01-29 14:15 | ED_ITS ---
HPI - Chest Pain General Chief Complaint: Chest Pain Stated Complaint: chest pain Time Seen by Provider: 01/29/19 13:44 Source: patient Mode of arrival: ambulatory Limitations: no limitations History of Present Illness HPI narrative: Patient is an 84-year-old male presenting with chest pain. He has a complicated medical history as with amyloidosis, CLL, CAD with inferior posterior MO and CABG in 2008. Aortic stenosis. It sounds as though he has had angina off and on. According to the for the last 3 days as it has been much more frequent. She has been able to control it at home with nitroglycerin and liquid morphine until today when it got much worse. He received 2 nitroglycerin at home and is now chest pain-free in the ED. He was in atrial fibrillation on EKG is however it while on monitor his seems as though he converted. Related Data Home Medications Medication Instructions Recorded Confirmed aspirin 81 mg PO QDAY #0 10/08/12 01/17/19 ranolazine [Ranexa] 500 mg PO BID 04/23/18 01/17/19 sennosides [senna] 1 tab PO DAILY PRN 10/27/18 01/17/19 amlodipine 5 mg tablet 5 mg PO DAILY 01/17/19 01/17/19 Previous Rx's Medication Instructions Recorded citalopram 20 mg tablet 20 mg PO QDAY #90 tab 07/31/18 atorvastatin 40 mg PO DAILY #30 tab 11/02/18 clopidogrel [Plavix] 75 mg PO DAILY #30 tab 11/02/18 furosemide 40 mg PO DAILY #180 tab 11/02/18 morphine 15 mg PO Q4HR PRN #30 tab 11/02/18 isosorbide mononitrate ER 60 mg 60 mg PO QPM #90 tab 11/09/18 tablet,extended release 24 hr nitroglycerin 0.4 mg sublingual 0.4 mg SL Q5-15M PRN #50 tab 11/30/18 tablet Allergies Allergy/AdvReac Type Severity Reaction Status Date / Time No Known Drug Allergies Allergy Unknown Verified 01/17/19 10:41 [NO KNOWN DRUG ALLERGIES] abalone Allergy Mild pt reports Uncoded 01/17/19 10:41 vomiting/GI distress Review of Systems Review of Systems GENERAL: Denies chills, fatigue, malaise, fever, sweats, travel HEENT: Denies sinus pain, ear pain, sore throat, difficulty swallowing, neck pain RESPIRATORY: Denies dyspnea, cough, wheezing, hemoptysis, sputum. CARDIOVASCULAR: See HPI GASTROINTESTINAL: Denies nausea, vomiting, abdominal pain, diarrhea, const ipation, melena. : Denies dysuria, frequency, incontinence, hematuria, urinary retention, flank pain. MUSCULOSKELETAL: Denies weakness, joint pain, or bony pain SKIN: No rash, no erythema, no pruritus NEUROLOGIC: Denies weakness, dizziness, headache, numbness, change in speech, confusion PSYCHIATRIC: No concerning psychosocial issues. 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) Spinal stenosis, site unspecified (Chronic 06/22/11) History of pulmonary embolism (Chronic) Chronic rhinitis (Chronic) Nephrotic syndrome with unspecified morphologic changes (Chronic 06/22/11) Memory loss (Chronic) BPH w urinary obs/LUTS (Chronic 06/22/11) CHF (congestive heart failure) (Chronic) Cardiac amyloidosis (Chronic) Chronic renal failure, stage 2 (mild) (Chronic) 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) Gastroesophageal reflux disease without esophagitis (Chronic 09/02/15) Nonrheumatic aortic valve stenosis (Chronic 02/15/17) LBBB (left bundle branch block) (Chronic) Chronic back pain (Chronic) Neuropathy (Chronic) Osteoarthritis (Chronic) Actinic keratosis (Resolved) Fractures (Resolved 2009) Plantar warts (Resolved) Surgical History S/P IVC filter (Chronic) History of angioplasty (Resolved) History of lumbosacral spine surgery (Resolved 2007) History of vasectomy (Resolved 1990) S/P coronary artery stent placement (Resolved 11/2016) Status post coronary artery bypass graft (Resolved 2008) Social History marital status: number of children: 3 household members: spouse and other lives independently: Yes caregiver/support person: No housing: house pets and animals: Yes education level: other (College + some graduate schooling.) occupational status: other (Retired) Previous occupational history: [employer] travel history: recent ([place]) leisure activities: exercise (Walking), music and reading Smoking Status: Never smoker Tobacco: How many years used: 0 quit status: quit date established (Never Started) second hand exposure: No alcohol intake: current substance use type: does not use Social History marital status: number of children: 3 household members: spouse and other lives independently: Yes caregiver/support person: No housing: house pets and animals: Yes education level: other (College + some graduate schooling.) occupational status: other (Retired) Previous occupational history: [employer] travel history: recent ([place]) leisure activities: exercise (Walking), music and reading Smoking Status: Never smoker Tobacco: How many years used: 0 quit status: quit date established (Never Started) second hand exposure: No alcohol intake: current substance use type: does not use Exam Initial Vital Signs Initial Vital Signs: Vital Signs Temperature 97.8 F 01/29/19 13:25 Pulse Rate 99 H 01/29/19 13:25 Respiratory Rate 18 01/29/19 13:25 Blood Pressure 103/68 01/29/19 13:25 Pulse Oximetry 86 L 01/29/19 13:25 Gen.: Alert pleasant elderly male no acute distress HEENT: Head is atraumatic EOMI Neck: Neck is supple no JVD Lungs: Clear bilaterally no wheezes rales or rhonchi Cardiac: Regular rate and rhythm no murmur Abdomen: Soft nontender nondistended no guarding or rebound Extremities: No deformity no edema in his lower extremities peripheral pulses intact Neurologic: Alert oriented no gross deficits Course Orders Ordered: ED Orders 01/29/19 13:50 Complete Blood Count AUTO DIFF Stat Comprehensive Metabolic Panel Stat Lipase Stat Partial Thromboplastin Time Stat Prothrombin Time INR Stat Troponin & CK Cardiac Panel Stat 01/29/19 14:07 XR chest 1V Stat EKG-12 Lead Stat Vital Signs - 8 hr 01/29/19 13:25 Temperature 97.8 F Pulse Rate 99 H Respiratory Rate 18 Blood Pressure 103/68 Pulse Oximetry 86 L MDM - Chest Pain Lab Data Attestation: I reviewed the patient's lab results. Result diagrams: 01/29/19 13:50 01/29/19 13:50 Lab Results 01/29/19 01/29/19 01/29/19 Range/Units 13:50 13:50 13:50 WBC 7.8 (4.5-11.0) X10^3/uL RBC 3.89 L (4.5-5.9) X10^6/uL Hgb 12.8 L (13.5-17.5) g/dL Hct 37.8 L (41-53) % MCV 97.2 (80-100) fL MCH 33.0 (26-34) PG MCHC 34.0 (30-36) % RDW 13.8 (11.6-14.8) % Plt Count 181 (150-400) X10^3/uL Neut % (Auto) 81.5 H (50-75) % Lymph % (Auto) 8.5 L (25-40) % [place] % (Auto) 9.0 (3-14) % Eos % (Auto) 0.6 L (2-4) % Baso % (Auto) 0.4 (0-2) % Neut # (Auto) 6300 (1631-3681) /uL Lymph # (Auto) 700 L (3658-6794) /uL [place] # (Auto) 700 (0-900) /uL Eos # (Auto) 0 (0-450) /uL Baso # (Auto) 0 (0-100) /uL PT 13.5 H (10.1-12.7) SECONDS INR 1.2 (0.9-1.3) APTT 26 L (26.4-36.2) SECONDS Sodium 137 (137-145) mmol/L Potassium 3.9 (3.4-5.1) mmol/L Chloride 97 L (98-107) mmol/L Carbon Dioxide 27 (22-32) mmol/L BUN 53 H (9-20) mg/dL Creatinine 1.60 H (0.66-1.25) mg/dL Estimated GFR 41.4 L (>60) mL/min BUN/Creatinine Ratio 33.1 H (6-22) Glucose 111 H (80-110) mg/dL Calcium 9.1 (8.4-10.2) mg/dL Total Bilirubin 1.5 H (0.2-1.3) mg/dL AST 36 (17-59) IU/L ALT 31 (21-72) IU/L Alkaline Phosphatase 132 H (38-126) U/L Total Creatine Kinase 76 (55-170) U/L CK-MB (CK-2) TNP CK-MB (CK-2) Rel Index TNP Troponin I 1.800 H* (0.01-0.034) ng/mL Total Protein 7.3 (6.3-8.2) g/dL Albumin 4.2 (3.5-5.0) g/dL Globulin 3.1 (1.7-4.1) g/dL Albumin/Globulin Ratio 1.4 (1.0-2.8) Lipase 48 (23-300) U/L Imaging Data Chest x-ray: Radiologist's impression: PROCEDURE: XR CHEST 1V INDICATIONS: chest pain TECHNIQUE: One view of the chest was acquired. COMPARISON: [facility], CR, XR CHEST 1V, 10/30/2018, 8:55. [facility], CR, XR CHEST 1V, 10/27/2018, 11:20. FINDINGS: Surgical changes and devices: None. Lungs and pleura: Moderate left basilar airspace opacity. Small left pleural eff usion. No pneumothorax. Mediastinum: Mediastinal contours appear normal. Heart size is normal. Bones and chest wall: No suspicious bony lesions. Overlying soft tissues appear unremarkable. IMPRESSION: Left lower lobe pneumonia with small parapneumonic effusion. Continued plain film surveillance is recommended to ensure resolution, and to exclude underlying or central malignancy. Dictated by: Rom Benito M.D. on 01/29/2019 at 14:49 ECG Data Attestation: I personally reviewed and interpreted this ECG as follows: Prior ECG tracings: available for review Interpretation: EKG atrial fibrillation rate 94 no P waves appreciated similar to previous EKG MDM Narrative Medical decision making narrative: Patient's troponin is positive. Is actually lower than what it was previously in October. Patient is no longer having chest pain appears comfortable. states that he has been complaining of chest pain all week until he got to the emergency department. Dr. Perez [employer] consult in regards to positive troponin. His patient is no longer having chest pain in the ED. He states that family has often refused any sort of intervention. He was previously on hospice. At this time as he recommends returning to hospice. He thinks positive troponins are from microvascular disease and amyloidosis. Dr. Rosado patient's PCP has been updated. His he agrees with hospice and will help family with that. Patient is noted to be slightly hypoxic. states that they have an oxygen concentrator at home. If patient sits up and concentrates on breathing his O2 goes up to 91%. While lying down sleeping it is in the 80s. Both patient and family feel comfortable and wanting to go home. They understand the events have occurred. will be calling Hospice soon as they get home. Discharge Plan Departure Patient Disposition: Home Clinical Impression: Angina at rest, Cardiomyopathy Discharge Date/Time: 01/29/19 16:30 Interventions: ED Discharge Assessment Last Done: 01/29/19 16:29 Instructions: DI for Acute Coronary Syndrome, DI for Angina Activity Restrictions/Additional Instructions: *You have been diagnosed with angina with positive troponin myocardial infarction *What to do: I have spoken with Dr. Rosado and Dr. Perez. Dr. Rosado will call hospice. *Continue to take medications as directed Increase Ranexa to 1000 mg twice a day *Follow up with your primary care provider in 2-3 days *Return to ER if you should have or any new, worsening or concerning symptoms Prescriptions: No Action aspirin 81 mg Tablet,Delayed Release (Dr/Ec) 81 mg PO QDAY Qty: 0 RF: 0 citalopram 20 mg tablet 20 mg PO QDAY Qty: 90 RF: 3 isosorbide mononitrate 60 mg tablet extended release 24 hr 60 mg PO QPM Qty: 90 RF: 0 amlodipine 5 mg tablet 5 mg PO DAILY RF: 0 nitroglycerin [Nitrostat] 0.4 mg tablet, sublingual 0.4 mg SL Q5-15M PRN (Reason: chest pain) Qty: 50 RF: 8 ranolazine [Ranexa] 500 mg Tablet Extended Release 12 Hr 500 mg PO BID RF: 0 sennosides [senna] 8.6 mg Tablet 1 tab PO DAILY PRN (Reason: Constipation) RF: 0 clopidogrel [Plavix] 75 mg Tablet 75 mg PO DAILY Qty: 30 RF: 5 morphine 15 mg Tablet 15 mg PO Q4HR PRN (Reason: Chest Pain) Qty: 30 RF: 0 atorvastatin 40 mg tablet 40 mg PO DAILY Qty: 30 RF: 5 furosemide 20 mg tablet 40 mg PO DAILY Qty: 180 RF: 5 Referrals: Navneet Rosado MD [Primary Care Provider] -
[2019-01-29 14:16] LABS: PTT Partial Thromboplastin Tim 26 SECONDS (26.4-36.2)
[2019-01-29 14:20] LABS: Alanine Aminotransferase 31 IU/L (21-72); Albumin 4.2 g/dL (3.5-5.0); Albumin Globulin Ratio 1.4 (1.0-2.8); Alkaline Phosphatase 132 U/L (38-126); Aspartate Aminotransferase 36 IU/L (17-59); BUN Creatinine Ratio 33.1 (6-22); Bilirubin Total 1.5 mg/dL (0.2-1.3); Blood Urea Nitrogen 53 mg/dL (9-20); Calcium 9.1 mg/dL (8.4-10.2); Carbon Dioxide 27 mmol/L (22-32); Chloride 97 mmol/L (98-107); Creatine Kinase 76 U/L (55-170); Estimated Glomerular Filt Rate 41.4 mL/min (>60); Globulin 3.1 g/dL (1.7-4.1); Glucose 111 mg/dL (80-110); HEMOLYSIS < 15 (0-50); Lipase 48 U/L (23-300); Potassium 3.9 mmol/L (3.4-5.1); Sodium 137 mmol/L (137-145); Total Protein 7.3 g/dL (6.3-8.2)
[2019-01-29 15:00] VITALS: BP 104/61; PULSE 71; RESP 16; O2SAT 95
[2019-01-29 16:05] VITALS: BP 110/61; PULSE 73; RESP 17; O2SAT 91
== END 2019-01-29 16:30 | disposition home or self-care (01) ==
PROVIDERS: Emergency Provider Emergency Medicine; PCP Internal Medicine
DX: I20.8 Other forms of angina pectoris (principal); I42.9 Cardiomyopathy, unspecified
CPT/HCPCS: 36591; 71045; 80053; 82550; 83690; 84484; 85025; 85610; 85730; 93005; 99283; 99285

== ENCOUNTER → 2019-03-11 10:50 | Outpatient (CLI) | payer OTHER, SELFPAY ==
[2018-10-27 16:21] VITALS: BMI 22.7
[2019-03-11 11:37] LABS: Alanine Aminotransferase 20 IU/L (21-72); Albumin Globulin Ratio 1.5 (1.0-2.8); Alkaline Phosphatase 134 U/L (38-126); Aspartate Aminotransferase 21 IU/L (17-59); BUN Creatinine Ratio 19.2 (6-22); Bilirubin Total 0.6 mg/dL (0.2-1.3); Blood Urea Nitrogen 25 mg/dL (9-20); Calcium 9.5 mg/dL (8.4-10.2); Carbon Dioxide 29 mmol/L (22-32); Chloride 101 mmol/L (98-107); Estimated Glomerular Filt Rate 52.6 mL/min (>60); Globulin 2.6 g/dL (1.7-4.1); Glucose 93 mg/dL (80-110); HEMOLYSIS < 15 (0-50); Magnesium 1.9 mg/dL (1.6-2.3); Potassium 4.4 mmol/L (3.4-5.1); Sodium 140 mmol/L (137-145); Total Protein 6.6 g/dL (6.3-8.2)
[2019-03-18 13:06] LABS: Lipoprofile NMR SEE SEPERATE REPORT
== END ==
PROVIDERS: PCP Internal Medicine; Visit Provider Specialist
DX: I50.32 Chronic diastolic (congestive) heart failure (principal); E78.5 Hyperlipidemia, unspecified
CPT/HCPCS: 36415; 80053; 83704; 83735